=== PATIENT | female | born 1955 | race Caucasian/White ===

== ENCOUNTER 2017-01-04 09:32 | Day surgery (SDC) | payer OTHER ==
[2016-12-30 15:33] VITALS: BMI 18.3
[~2017-01-04 09:32] MED LIST: LACTATED RINGERS 1,000 ML IV SCH
[2017-01-04 09:46] VITALS: RESP 16; TEMP 97.1
[2017-01-04] MEDS ORDERED: LIDOCAINE 1% 20 ML VIAL (10MG/ML) FOR IV START INTRADERMA ONE (09:54)
[2017-01-04 10:02] LABS: Glucose,Whole Blood 105 mg/dL (75-99)
[2017-01-04] MEDS ORDERED: PROPOFOL 10 MG/ML 20 ML VIAL IV ONE (11:34)
--- NOTE | 2017-01-04 11:42 | P.GSHP ---
History of Present Illness H&P Date: 01/04/17 Chief Complaint: Diverticulitis This is a 61-year-old female who presents today for colonoscopy. She's had issues of diverticulitis. - Constitutional Constitutional: Reports as per HPI Past Medical History Past Medical History: No Reported History Additional Past Medical History / Comment(s): diverticulosis,constipation History of Any Multi-Drug Resistant Organisms: None Reported Past Surgical History: Section Past Anesthesia/Blood Transfusion Reactions: Motion Sickness Past Psychological History: No Psychological Hx Reported Additional Psychological History / Comment(s): pt is independant. lives w/ daughter and son in law in single story home that has 2 steps to get into. has 1 cat, works for [employer]. no medical equipment or outside services. Smoking Status: Current every day smoker Past Alcohol Use History: None Reported Additional Past Alcohol Use History / Comment(s): 1/2 ppd x 18 years Past Drug Use History: None Reported - Past Family History Father Family Medical History: No Reported History Additional Family Medical History / Comment(s): healthy Mother Family Medical History: Hypertension Medications and Allergies Home Medications Medication Instructions Recorded Confirmed Type No Known Home Medications [No 12/30/16 01/04/17 History Known Home Medications] Allergies Allergy/AdvReac Type Severity Reaction Status Date / Time Penicillins Allergy Unknown Verified 01/04/17 09:41 mold AdvReac Unknown Verified 01/04/17 09:41 Surgical - Exam Vital Signs Temp Pulse Resp BP Pulse Ox 97.1 F L 115 H 16 151/89 95 01/04/17 09:44 01/04/17 09:44 01/04/17 09:44 01/04/17 09:44 01/04/17 09:44 - General well developed, no distress - Eyes PERRL - ENT normal pinna - Neck no masses - Respiratory normal expansion - Cardiovascular Rhythm: regular - Abdomen Abdomen: soft, non tender Results - Labs Abnormal Lab Results - Last 24 Hours (Table) 01/04/17 Range/Units 09:49 POC Glucose (mg/dL) 105 H (75-99) mg/dL Assessment and Plan Plan: History of Diverticulitis. We'll perform colonoscopy
--- NOTE | 2017-01-04 11:53 | P.OP ---
Date of Procedure: 01/04/17 Preoperative Diagnosis: History of diverticulitis Postoperative Diagnosis: Severe diverticulosis of sigmoid and left colon Procedure(s) Performed: Colonoscopy Anesthesia: MAC Surgeon: Roland Keene Pathology: none sent Condition: stable Disposition: PACU Description of Procedure: The patient's placed on the endoscopy table in the lateral position. She received IV sedation. Digital rectal exam was performed which revealed no abnormalities. Flexible colonoscope was then placed patient anus passed throughout the entire colon. The ileocecal valve visualized. The cecum, ascending transverse colon appeared normal. In the descending; there is extensive diverticular changes. There appeared to be previous evidence of diverticulitis in the sigmoid colon with some inflammatory changes. A biopsies ; was performed. Scope was brought back the rectum and this appeared normal. Scope was withdrawn for patient.
[2017-01-04 12:23] VITALS: BP 141/88; PULSE 84
== END 2017-01-04 13:13 | disposition home or self-care (01) ==
LOC: ORWHC2ENDO 09:32
PROVIDERS: ATTEND Surgery
DX: K57.30 Diverticulosis of large intestine without perforation or abscess without bleeding (principal); F17.200 Nicotine dependence, unspecified, uncomplicated; Z88.0 Allergy status to penicillin; Z91.09 Other allergy status, other than to drugs and biological substances
CPT/HCPCS: 88305; 45380; J2704

== ENCOUNTER → 2017-01-31 | Outpatient (CLI) | payer OTHER ==
[2017-01-31 13:42] LABS: EKG EKG PERFORMED
[2017-01-31 14:15] LABS: Basophils % (A) 0 %; CH 29.8; CHCM 33.3; Eosinophils # (A) 0.1 k/uL (0-0.7); Eosinophils % (A) 1 %; HCT 45.5 % (34.0-46.0); HDW 2.36; HGB 15.2 gm/dL (11.4-16.0); Luc # (Auto) 0.14; Luc % (Auto) 2; Lymphocytes # (A) 1.8 k/uL (1.0-4.8); Lymphocytes % (A) 22 %; MCH 30.1 pg (25.0-35.0); MCHC 33.5 g/dL (31.0-37.0); MCV 89.8 fL (80.0-100.0); Mean Platelet Volume 6.2; Monocytes # (A) 0.5 k/uL (0-1.0); Monocytes % (A) 6 %; Neutrophils # (A) 5.7 k/uL (1.3-7.7); Neutrophils % (A) 70 %; RBC 5.07 m/uL (3.80-5.40); RDW 13.3 % (11.5-15.5); WBC 8.3 k/uL (3.8-10.6); WBC (Perox) 8.25
[2017-01-31 14:17] LABS: Anion Gap 8 mmol/L; Carbon Dioxide 28 mmol/L (22-30); Chloride 105 mmol/L (98-107); Potassium 4.6 mmol/L (3.5-5.1); Sodium 141 mmol/L (137-145)
== END | disposition home or self-care (01) ==
LOC: LABWHC1 13:22
PROVIDERS: ATTEND Surgery
DX: Z01.810 Encounter for preprocedural cardiovascular examination (principal); Z01.812 Encounter for preprocedural laboratory examination
CPT/HCPCS: 36415; 80051; 85025; 86850; 86900; 86901; 93005

== ENCOUNTER 2017-02-03 08:05 | Inpatient (IN) | payer OTHER ==
[2017-01-31 10:56] VITALS: BMI 18.3
[~2017-02-03 08:05] MED LIST changes: +DEXAMETHASONE SOD PHOSPHATE 10 MG/ML 1 ML VIAL IV ONE; +HEPARIN SODIUM,PORCINE 5,000 UNIT/ML 1 ML VIAL SQ ONE; +HYDROmorphone 1 MG/ML 1 ML SYRINGE IVP PRN; -LACTATED RINGERS 1,000 ML IV SCH; +MIDAZOLAM 2 MG/2 ML VIAL IV PRN; +ONDANSETRON 4 MG/2 ML VIAL IVP ONE; +ceFAZolin 2 GM in SODIUM CHLORIDE 0.9% 100 ML IVPB ONE; +metroNIDAZOLE-NS PMX 500 MG in SALINE 1 100ML.BAG IVPB ONE
[2017-02-03] MEDS ORDERED: LIDOCAINE 1% 20 ML VIAL (10MG/ML) FOR IV START INTRADERMA ONE (08:43)
[2017-02-03] MEDS: LACTATED RINGERS 1,000 ML IV SCH ×2 (08:43→15:32)
--- NOTE | 2017-02-03 10:22 | P.GSHP ---
History of Present Illness H&P Date: 02/03/17 Chief Complaint: Diverticulitis This is a 61-year-old female presents today for low anterior resection. Patient has had recent history of perforated diverticulitis. Patient's aware the risks of surgery including possible colostomy wound infection. - Constitutional Constitutional: Reports as per HPI Past Medical History Past Medical History: No Reported History Additional Past Medical History / Comment(s): diverticulosis, History of Any Multi-Drug Resistant Organisms: None Reported Past Surgical History: Section Additional Past Surgical History / Comment(s): COLONOSCOPY, Past Anesthesia/Blood Transfusion Reactions: Motion Sickness Past Psychological History: No Psychological Hx Reported Additional Psychological History / Comment(s): pt is independant. lives w/ daughter and son in law in single story home that has 2 steps to get into. has 1 cat, works for [employer]. no medical equipment or outside services. Smoking Status: Current every day smoker Past Alcohol Use History: None Reported Additional Past Alcohol Use History / Comment(s): STARTED SMOKING AT AGE 42 SMOKES 1/2PPD Past Drug Use History: None Reported - Past Family History Father Family Medical History: No Reported History Additional Family Medical History / Comment(s): healthy Mother Family Medical History: Hypertension Medications and Allergies Home Medications Medication Instructions Recorded Confirmed Type No Known Home Medications [No 12/30/16 02/03/17 History Known Home Medications] Allergies Allergy/AdvReac Type Severity Reaction Status Date / Time latex Allergy Itching, Verified 02/03/17 08:29 RED SKIN Penicillins Allergy HIVES Verified 02/03/17 08:29 mold AdvReac RUNNY Verified 02/03/17 08:29 NOSE,SNEEZING Surgical - Exam Vital Signs Temp Pulse Resp BP Pulse Ox 97.1 F L 100 16 140/88 99 02/03/17 08:25 02/03/17 08:25 02/03/17 08:25 02/03/17 08:25 02/03/17 08:25 - General well developed, no distress - Eyes PERRL - ENT normal pinna - Neck no masses - Respiratory normal expansion - Cardiovascular Rhythm: regular - Abdomen Mild left lower quadrant tenderness Abdomen: soft Assessment and Plan Plan: History of perforated diverticula is. We'll perform low anterior resection.
[2017-02-03] MEDS: MORPHINE SULFATE 4 MG/ML SYRINGE IVP ONE ×2 (10:26→10:33)
[2017-02-03] MEDS ORDERED: NEOSTIGMINE 1 MG/ML 10 ML VIAL ONE (10:28)
[2017-02-03] MEDS ORDERED: PHENYLEPHRINE-0.9% NACL SYG 1 MG/10 ML SYRINGE ONE (10:28)
[2017-02-03] MEDS ORDERED: GLYCOPYRROLATE 0.2 MG/ML 2 ML VIAL ONE (10:28)
[2017-02-03] MEDS ORDERED: PROPOFOL 10 MG/ML 20 ML VIAL IV ONE (10:28)
[2017-02-03] MEDS ORDERED: SUCCINYLCHOLINE CHLORIDE 100 MG/5 ML SYR IV ONE (10:28)
[2017-02-03] MEDS ORDERED: LIDOCAINE 1% INJ 10MG/ML (20 ML MDV) ONE (10:28)
[2017-02-03] MEDS ORDERED: ROCURONIUM BROMIDE 10 MG/ML 10 ML VIAL IV ONE (10:28)
[2017-02-03] MEDS ORDERED: MIDAZOLAM 2 MG/2 ML VIAL ONE (10:28)
[2017-02-03] MEDS ORDERED: fentaNYL (PF) 50 MCG/ML 2 ML AMP ONE (10:28)
[2017-02-03] MEDS ORDERED: ONDANSETRON 4 MG/2 ML VIAL ONE (10:28)
[2017-02-03] MEDS ORDERED: LACTATED RINGERS 1,000 ML IV ONE ×2 (11:02)
[2017-02-03] MEDS ORDERED: NALOXONE 0.4 MG/ML 1 ML VIAL IV PRN (11:13)
[2017-02-03] MEDS ORDERED: HYDROmorphone 1 MG/ML 1 ML SYRINGE IVP PRN (11:58)
[2017-02-03] MEDS ORDERED: METOCLOPRAMIDE 5 MG/ML 2 ML VIAL IVP PRN (11:58)
[2017-02-03] MEDS ORDERED: ONDANSETRON 4 MG/2 ML VIAL IVP PRN (11:58)
--- NOTE | 2017-02-03 11:58 | P.OP ---
Date of Procedure: 02/03/17 Preoperative Diagnosis: History of perforated diverticulitis Postoperative Diagnosis: Perforated diverticulitis Procedure(s) Performed: Low anterior section Repair of incisional hernia Implants: Anesthesia: JEANIEA Surgeon: Roland Keene Estimated Blood Loss (ml): 20 Pathology: other (Sigmoid colon) Condition: stable Disposition: PACU Indications for Procedure: Operative Findings: Description of Procedure: The patient's placed the operative table in the supine position. She received general anesthesia. She was then placed in dorsal lithotomy position. Her abdomen was prepped and draped usual fashion. The patient a previous low midline incision. Superior portion of her low midline incision was a small mass which was an incisional hernia. The abdomen was entered through the midline. The incisional hernia had incarcerated fat. This was sent to pathology. The Puneet wound infection placed in the wound and then the Bookwalter placed a wound. The patient obvious sigmoid diverticulitis. There was a short segment of the; which was chronically inflamed. This point the sigmoid colon and left colon were mobilized. And then a suitable spot on the descending colon was chosen for transection a window was made in the mesentery with a hemostat and then the colon was transected with a GI stapler. Next using the LigaSure device the mesentery of the bowel was divided and then the rectum was transected with the contour stapler. The pursestring device applied to the proximal colon and then fired. The colon was then opened and the 25 mm EEA stapler was placed into the colon and of pursestring was secured. At this point the EEA staplerpatient's anus and then the spike was driven through the staple line. The anvil was connected to the stapler the stapler is then closed and fired. The stapler was withdrawn. The anastomosis was inspected under air insufflation. There was a small amount of air leakage from the lateral aspect of the anastomosis. The anastomosis was buttressed with 3-0 GI silk suture. The colon was then reinsufflated and there is no evidence of any air leakage. The abdomen was then irrigated. The retractors and wound protector removed. The fascia is closed loop #1 PDS suture. The skin was closed abram. Patient top she will well and was sent to recovery in stable condition.
[2017-02-03] MEDS: BUPIVACAINE (PF) 0.5% 31.3 ML, HYDROMORPHONE (PF) 5 MG in SODIUM CHLORIDE 0.9% 218 ML EPIDURAL PRN ×2 (12:05→12:56)
[2017-02-03 15:51] LABS: Basophils % (A) 0 %; CH 30.4; CHCM 32.2; Eosinophils # (A) 0.1 k/uL (0-0.7); Eosinophils % (A) 1 %; HDW 2.17; HGB 15.1 gm/dL (11.4-16.0); Luc # (Auto) 0.04; Luc % (Auto) 0; Lymphocytes # (A) 0.4 k/uL (1.0-4.8); Lymphocytes % (A) 3 %; MCH 30.3 pg (25.0-35.0); MCHC 32.1 g/dL (31.0-37.0); MCV 94.6 fL (80.0-100.0); Mean Platelet Volume 6.1; Monocytes # (A) 0.4 k/uL (0-1.0); Monocytes % (A) 3 %; Neutrophils % (A) 93 %; RBC 4.97 m/uL (3.80-5.40); RDW 13.7 % (11.5-15.5); WBC 15.1 k/uL (3.8-10.6); WBC (Perox) 15.74
[2017-02-03 15:58] LABS: Anion Gap 11 mmol/L; Blood Urea Nitrogen 9 mg/dL (7-17); Carbon Dioxide 22 mmol/L (22-30); Chloride 108 mmol/L (98-107); Glucose 122 mg/dL (74-99); Non-African American GFR(MDRD) >60 (>60 ml/min/1.73 sqM); Sodium 141 mmol/L (137-145)
[2017-02-03] MEDS: D5-0.45% NACL WITH KCL 20MEQ/L 1,000 ML IV SCH (16:15)
[2017-02-03] MEDS: ALVIMOPAN 12 MG CAPSULE PO SCH (21:06)
[2017-02-03] MEDS: HEPARIN SODIUM,PORCINE 5,000 UNIT/ML 1 ML VIAL SQ SCH (21:07)
[2017-02-03] MEDS: FAMOTIDINE 20 MG/2 ML VIAL IV SCH (21:08)
--- NOTE | 2017-02-03 21:23 | CONS ---
DATE OF CONSULTATION: 02/03/2017 REASON FOR CONSULTATION: Advice regarding diabetic diverticulosis and other multiple medical issues requested by Dr. Keene. HISTORY OF PRESENT ILLNESS: This 61-year-old woman with past medical history of diverticulitis and remote history of nicotine dependence being followed by Dr. Dael Alvarez in the outpatient setting recently admitted with acute abdominal pain with acute diverticulitis. The patient underwent low anterior resection and repair of incisional hernia by Dr. Keene. There is no history of fever, rigors or chills. No history of headache, loss of consciousness or seizures, chest pain or palpitations at this time. PAST MEDICAL HISTORY: History of diverticulitis. History of colonoscopy. History of section. History of nicotine dependence. MEDICATIONS: None. ALLERGIES: LATEX, PENICILLIN AND MOLD. FAMILY HISTORY: No history of heart disease or strokes in the family. SOCIAL HISTORY: History of smoking. No history of alcohol intake. REVIEW OF SYSTEMS: HEENT: No diminished vision. No diminished hearing. No angina or palpitations. RESPIRATORY: No cough. GI: As mentioned earlier. : No dysuria. Nervous system: Numbness or weakness. ALLERGIES/IMMUNOLOGY: No asthma or hayfever. MUSCULOSKELETAL: As mentioned earlier. HEMATOLOGY/ONCOLOGY: No history of anemia. ENDOCRINE: No history of diabetes or hypothyroidism. CONSTITUTIONAL: As mentioned earlier. DERMATOLOGY: Negative. RHEUMATOLOGY: As mentioned earlier. PSYCHIATRY: As mentioned earlier. PHYSICAL EXAMINATION: Alert and oriented x three. Pulse 97. Blood pressure 126/62, respiratory rate 16. Temperature 97.5, pulse ox 97% on 3 L. HEENT: Conjunctivae normal. NECK: No jugular venous distention. CARDIOVASCULAR: S1, S2 muffled. RESPIRATORY: Breath sounds diminished at the bases. No rhonchi. No crackles. ABDOMEN: Soft, status post surgery. Legs: No edema. No swelling. CENTRAL NERVOUS SYSTEM: Higher functions as mentioned earlier. Moves all four limbs. No focal deficits. LYMPHATICS: No lymph nodes palpable in the neck, axillae or groin. SKIN: No ulcer, rash or bleeding. LABS: WBC 15.3, hemoglobin 15.1, sodium 141, potassium 4. ASSESSMENT: 1. Status post low anterior resection and repair of incisional hernia for diverticulitis. 2. Increased WBC, possibly reactive. 3. Increased random blood sugar. 4. History of nicotine dependence. 5. History of section. 6. FULL CODE. RECOMMENDATIONS AND DISCUSSION: This 61-year-old woman who presented after surgery at this time I would recommend to continue current medications, continue symptomatic treatment. Otherwise at this time, I recommend DVT prophylaxis, incentive spirometry. We will follow the patient closely with you. Further recommendations to follow. A copy of dictation being forwarded to Dr. Dale Alvarez who is her primary physician. Discussed with the patient. Thank you Dr. Keene for lettings us participate in the care of this patient. See orders for further details.
[2017-02-04] MEDS: D5-0.45% NACL WITH KCL 20MEQ/L 1,000 ML IV SCH ×4 (05:56→21:33)
[2017-02-04] MEDS: LACTATED RINGERS 1,000 ML IV SCH ×2 (05:57→14:03)
[2017-02-04] MEDS: FAMOTIDINE 20 MG/2 ML VIAL IV SCH ×2 (07:52→21:26)
[2017-02-04] MEDS: ALVIMOPAN 12 MG CAPSULE PO SCH ×2 (07:52→21:26)
[2017-02-04] MEDS: HEPARIN SODIUM,PORCINE 5,000 UNIT/ML 1 ML VIAL SQ SCH ×2 (07:52→21:26)
--- NOTE | 2017-02-04 10:13 | P.PN ---
Progress Note - Text 0745 Anesthesia POD 1. Patient is status post section under spinal anesthesia with intra-thecal preservative free morphine 300 g. Mild pruritus, good post-op analgesia, and headache or other complications.
--- NOTE | 2017-02-04 10:59 | P.PN ---
Progress Note - Text 8931 Anesthesia POD 1. Status Post low anterior resection under general endotracheal anesthesia with an epidrual catheter placed at L3 4 for post surgical pain releif. VAS (1, 3) with Bupivicaine 0.0625 % and Dilaudid 20 mcg / cc running at 8 cc / hr. Lower extremity strength (3/4). No sedation. Site looks OK. Since the patient's visual analog pain score is good her nurse and I have decided to reduce the infusion rate a bit in order to decrease what ever affect the epidural may be having on the patient's lower extremity strength.
[2017-02-04 13:40] LABS: ALT 23 U/L (9-52); AST 26 U/L (14-36); Alkaline Phosphatase 74 U/L (38-126); Anion Gap 10 mmol/L; Blood Urea Nitrogen 6 mg/dL (7-17); Calcium 8.9 mg/dL (8.4-10.2); Carbon Dioxide 23 mmol/L (22-30); Chloride 106 mmol/L (98-107); Glucose 130 mg/dL (74-99); Non-African American GFR(MDRD) >60 (>60 ml/min/1.73 sqM); Potassium 4.1 mmol/L (3.5-5.1); Sodium 139 mmol/L (137-145); Total Bilirubin 0.7 mg/dL (0.2-1.3); Total Protein 6.8 g/dL (6.3-8.2)
[2017-02-04 13:50] LABS: Basophils % (A) 0 %; CHCM 31.7; Eosinophils # (A) 0.1 k/uL (0-0.7); Eosinophils % (A) 0 %; HCT 44.7 % (34.0-46.0); HDW 2.22; HGB 14.3 gm/dL (11.4-16.0); Luc # (Auto) 0.12; Luc % (Auto) 1; Lymphocytes # (A) 1.8 k/uL (1.0-4.8); Lymphocytes % (A) 11 %; MCH 30.3 pg (25.0-35.0); MCV 94.7 fL (80.0-100.0); Mean Platelet Volume 6.2; Monocytes # (A) 0.8 k/uL (0-1.0); Monocytes % (A) 5 %; Neutrophils # (A) 14.3 k/uL (1.3-7.7); Neutrophils % (A) 83 %; RBC 4.71 m/uL (3.80-5.40); RDW 13.7 % (11.5-15.5); WBC 17.2 k/uL (3.8-10.6); WBC (Perox) 17.59
[2017-02-04 13:53] LABS: Appearance,Urine Clear (Clear); Bacteria,Urine Rare /hpf; Bilirubin,Urine Negative (Negative); Glucose,Urine (UA) Negative (Negative); Ketones,Urine Negative (Negative); Leukocyte Esterase,Urine Negative (Negative); Mucus,Urine Rare /hpf; Nitrite,Urine Negative (Negative); Particle Count 1185; Protein,Urine Negative (Negative); RBC,Urine 2 /hpf (0-5); Specific Gravity,Urine 1.005 (1.001-1.035); UA Billing (MACRO vs. MICRO) MICRO; Urobilinogen,Urine <2.0 mg/dL (<2.0); WBC,Urine 1 /hpf (0-5)
[2017-02-04] MEDS: BUPIVACAINE (PF) 0.5% 31.3 ML, HYDROMORPHONE (PF) 5 MG in SODIUM CHLORIDE 0.9% 218 ML EPIDURAL PRN (15:53)
--- NOTE | 2017-02-04 16:06 | P.PN ---
Progress Note - Text The patient's postoperative day 1 from low anterior resection for diverticulitis. She's doing quite well. She's had some numbness from the epidural catheter. On exam her vital signs are stable. Her abdomen soft. Her incision is clean dry tach. Patient was started clear liquids. She'll be advanced to regular diet over the weekend once her bowel function returns.
--- NOTE | 2017-02-04 17:07 | XR ---
EXAMINATION TYPE: XR chest 1V portable DATE OF EXAM: 02/04/2017 COMPARISON: NONE HISTORY: Chest pain. Atelectasis. TECHNIQUE: Single frontal view of the chest is obtained. FINDINGS: There is some infiltrate and atelectasis at the left lung base. There is blunting of the l eft costophrenic angle more than the right. There is no gross heart failure. Thoracic aorta is athero matous. There is minimal infiltrate also at the right lung base. IMPRESSION: Bilateral lower lobe pulmonary infiltrates and atelectasis that is worse on the left kandice e. No heart failure. Mild pleural reaction.
--- NOTE | 2017-02-04 21:36 | PN ---
DATE OF SERVICE: 02/04/2017 This 61-year-old woman admitted after low anterior resection and repair of incisional hernia, is being closely monitored. The patient complains of tiredness and weakness at this time. White count is elevated up to 15.1. UA is unremarkable. PAST MEDICAL HISTORY: Reviewed. REVIEW OF SYSTEMS: CARDIOVASCULAR: As mentioned earlier. RESPIRATORY: As mentioned earlier. : As mentioned earlier. : No dysuria. CENTRAL NERVOUS SYSTEM: No numbness or weakness. Current medications reviewed and include: 1. Enterag 12 mg b.i.d. 2. Bupivacaine. 3. Pepcid 20 mg b.i.d. 4. Heparin. 5. Dilaudid. 6. Lactated Ringer. 7. Reglan 10 mg 10 mg every 6 p.r.n. 8. Narcan. 9. Zofran. PHYSICAL EXAMINATION: Pulse is 99, blood pressure 130/64, respirations 16, temperature 98.7, pulse rate is 93% on 2 L. HEENT: Conjunctivae normal. NECK: No JVD. CARDIOVASCULAR: S1 and S2 muffled. RESPIRATORY: Breath sounds diminished at the bases. Scattered rhonchi and crackles. ABDOMEN: Soft. Mild diffuse tenderness present. LEGS: No edema. NERVOUS SYSTEM: No focal deficits. LABS: WBC 17.2, glucose 130. ASSESSMENT: 1. Status post low anterior resection and repair of incisional hernia for diverticulitis. 2. Increased WBC, possibly reactive. 3. Increased random blood sugar. 4. History of nicotine dependence. 5. History of section. 6. FULL CODE. RECOMMENDATIONS AND DISCUSSION: In this 61-year-old woman who presented with multiple medical issues, we will monitor the patient closely. Continue with symptomatic treatment. Continue with IV fluids. DVT prophylaxis. Also recommend UA with micro. Also recommend repeat labs as well as repeat chest x-ray also. Further recommendations to follow.
[2017-02-05] MEDS: LACTATED RINGERS 1,000 ML IV SCH ×2 (06:58→09:01)
[2017-02-05 08:13] VITALS: RESP 16
[2017-02-05] MEDS: D5-0.45% NACL WITH KCL 20MEQ/L 1,000 ML IV SCH ×4 (08:59→12:38)
[2017-02-05] MEDS: HEPARIN SODIUM,PORCINE 5,000 UNIT/ML 1 ML VIAL SQ SCH ×2 (09:00→20:21)
[2017-02-05] MEDS: ALVIMOPAN 12 MG CAPSULE PO SCH ×2 (09:00→20:21)
[2017-02-05] MEDS: FAMOTIDINE 20 MG/2 ML VIAL IV SCH ×2 (09:00→20:22)
--- NOTE | 2017-02-05 10:06 | P.PN ---
Subjective Principal diagnosis: Diverticulitis Patient says her pain is improving. Activity level also improving. No flatus or bowel movement thus far. No labwork from this morning. She has been slightly tachycardic. Objective - Vital Signs Vital signs: Vital Signs Temp 98.2 F 02/05/17 07:00 Pulse 110 H 02/05/17 07:00 Resp 16 02/05/17 07:00 BP 141/85 02/05/17 07:00 Pulse Ox 91 L 02/05/17 07:05 Intake & Output 02/04/17 02/05/17 02/05/17 18:59 06:59 18:59 Intake Total 240 1496 Output Total 3325 3750 850 Balance -5759 -2066 -850 Weight 50.802 kg Intake: IV 1496 D5-0.45% NaCl with KCl 1496 20Meq/l 1,000 ml @ 125 mls/hr IV .Q8H [facility] Rx#: [id number] Oral 240 Output: Urine 3325 3750 850 Other: Voiding Method Indwelling Catheter Indwelling Catheter Indwelling Catheter - Exam Abdomen: Soft, nondistended, mild incisional tenderness, dressing intact - Labs CBC & Chem 7: 02/04/17 12:49 02/04/17 12:49 Labs: Abnormal Lab Results - Last 24 Hours (Table) 02/04/17 02/04/17 02/04/17 Range/Units 12:45 12:49 12:49 WBC 17.2 H (3.8-10.6) k/uL Neutrophils # 14.3 H (1.3-7.7) k/uL BUN 6 L (7-17) mg/dL Glucose 130 H (74-99) mg/dL Urine Blood Trace H (Negative) Urine Bacteria Rare H (None) /hpf Urine Mucus Rare H (None) /hpf Assessment and Plan (1) Diverticulitis Narrative/Plan: Continue liquid diet. Increase activity levels. Check morning labs. Status: Acute
[2017-02-05 11:18] LABS: Basophils % (A) 0 %; CH 30.1; CHCM 32.5; Eosinophils # (A) 0.2 k/uL (0-0.7); Eosinophils % (A) 2 %; HCT 42.2 % (34.0-46.0); HDW 2.27; HGB 13.7 gm/dL (11.4-16.0); Luc # (Auto) 0.08; Luc % (Auto) 1; Lymphocytes # (A) 1.7 k/uL (1.0-4.8); Lymphocytes % (A) 17 %; MCH 30.1 pg (25.0-35.0); MCHC 32.3 g/dL (31.0-37.0); Mean Platelet Volume 6.2; Monocytes # (A) 0.4 k/uL (0-1.0); Monocytes % (A) 4 %; Neutrophils # (A) 7.7 k/uL (1.3-7.7); Neutrophils % (A) 76 %; RBC 4.54 m/uL (3.80-5.40); RDW 13.7 % (11.5-15.5); WBC 10.1 k/uL (3.8-10.6); WBC (Perox) 9.93
[2017-02-05] MEDS: LEVOFLOXACIN 500MG-D5W PMX 500 MG in DEXTROSE/WATER 1 100ML.BAG IVPB SCH (11:19)
[2017-02-05 11:39] LABS: ALT 26 U/L (9-52); AST 30 U/L (14-36); Alkaline Phosphatase 61 U/L (38-126); Anion Gap 6 mmol/L; Blood Urea Nitrogen 4 mg/dL (7-17); Calcium 8.9 mg/dL (8.4-10.2); Carbon Dioxide 28 mmol/L (22-30); Chloride 105 mmol/L (98-107); Glucose 105 mg/dL (74-99); Non-African American GFR(MDRD) >60 (>60 ml/min/1.73 sqM); Potassium 3.8 mmol/L (3.5-5.1); Sodium 139 mmol/L (137-145); Total Bilirubin 0.6 mg/dL (0.2-1.3); Total Protein 6.5 g/dL (6.3-8.2)
--- NOTE | 2017-02-05 18:25 | P.PN ---
Progress Note - Text 02/05 359 61-year-old female status post exploratory lap and low anterior resection by Dr. mena. seen this afternoon with epidural solution running at 7 mL an hour and a VAS of 1 at rest. No motor or sensory deficits, patient could ambulate easily all day. Plan to continue epidural infusion.
[2017-02-05] MEDS: LEVALBUTEROL NEB 1.25 MG/3 ML AMP INHALATION SCH (19:24)
[2017-02-05] MEDS: BUPIVACAINE (PF) 0.5% 31.3 ML, HYDROMORPHONE (PF) 5 MG in SODIUM CHLORIDE 0.9% 218 ML EPIDURAL PRN (19:42)
[2017-02-06] MEDS: D5-0.45% NACL WITH KCL 20MEQ/L 1,000 ML IV SCH ×2 (07:02→11:22)
[2017-02-06] MEDS: LACTATED RINGERS 1,000 ML IV SCH ×2 (07:03→11:33)
[2017-02-06 07:39] LABS: Basophils % (A) 0 %; CH 30.5; Eosinophils # (A) 0.1 k/uL (0-0.7); Eosinophils % (A) 1 %; HCT 41.7 % (34.0-46.0); HGB 13.4 gm/dL (11.4-16.0); Luc # (Auto) 0.07; Luc % (Auto) 1; Lymphocytes # (A) 1.6 k/uL (1.0-4.8); Lymphocytes % (A) 19 %; MCH 29.7 pg (25.0-35.0); MCHC 32.1 g/dL (31.0-37.0); MCV 92.6 fL (80.0-100.0); Mean Platelet Volume 6.1; Monocytes # (A) 0.4 k/uL (0-1.0); Monocytes % (A) 4 %; Neutrophils # (A) 6.4 k/uL (1.3-7.7); Neutrophils % (A) 75 %; RDW 13.6 % (11.5-15.5); WBC 8.6 k/uL (3.8-10.6); WBC (Perox) 8.65
[2017-02-06 08:14] LABS: ALT 30 U/L (9-52); AST 27 U/L (14-36); Alkaline Phosphatase 68 U/L (38-126); Anion Gap 8 mmol/L; Blood Urea Nitrogen 3 mg/dL (7-17); Calcium 9.2 mg/dL (8.4-10.2); Carbon Dioxide 26 mmol/L (22-30); Chloride 105 mmol/L (98-107); Glucose 108 mg/dL (74-99); Non-African American GFR(MDRD) >60 (>60 ml/min/1.73 sqM); Potassium 4.1 mmol/L (3.5-5.1); Sodium 139 mmol/L (137-145); Total Bilirubin 0.5 mg/dL (0.2-1.3)
[2017-02-06] MEDS: FAMOTIDINE 20 MG/2 ML VIAL IV SCH ×2 (08:31→21:40)
[2017-02-06] MEDS: ALVIMOPAN 12 MG CAPSULE PO SCH ×2 (08:31→21:40)
[2017-02-06] MEDS: HEPARIN SODIUM,PORCINE 5,000 UNIT/ML 1 ML VIAL SQ SCH ×2 (08:31→21:40)
--- NOTE | 2017-02-06 08:55 | PN ---
DATE OF SERVICE: 02/05/2017 This 61-year-old woman was admitted with anterior resection and repair of the incisional hernia, has been closely monitored. The patient has early infiltrate in both lower part of the lungs. Otherwise, the patient is feeling much better. No chest pain, no palpitations. No fever. On exam, alert and oriented x3. Pulse 107, blood pressure 150/88, respirations 16, temperature 98.1, pulse ox 91% on 2-L. HEENT: Conjunctivae normal. Oral mucosa moist. NECK: No jugular venous distention. No carotid bruit. No thyroid enlargement. CARDIOVASCULAR: S1 and S2, muffled. RESPIRATORY: Breath sounds diminished at the bases. A few scattered rhonchi and basal crackles, right more than the left. ABDOMEN: Soft, status post surgery. NERVOUS SYSTEM: No focal deficits. LABS: CBC within normal limits. UA noted. ASSESSMENT: 1. Status post low anterior resection and repair of incisional hernia for diverticulitis. 2. Increased WBC, possibly reactive, improved. 3. Previous atelectasis, rule out early bronchitis. 4. Increased random blood sugar. 5. History of nicotine dependence. 6. History of section. 7. FULL CODE. RECOMMENDATIONS AND DISCUSSION: In this 61-year-old woman who presented with multiple complex medical issues, will monitor the patient closely. Continue the current medications. Continue symptomatic treatment. I would recommend course of empiric antibiotics. I would also recommend course of bronchodilators also. Otherwise incentive spirometry. Will recommend repeat labs. Closely follow with Surgery. Further recommendations to follow. See orders for further details. ALICIAD
[2017-02-06] MEDS: LEVALBUTEROL NEB 1.25 MG/3 ML AMP INHALATION SCH ×3 (09:20→21:37)
[2017-02-06] MEDS: LEVOFLOXACIN 500MG-D5W PMX 500 MG in DEXTROSE/WATER 1 100ML.BAG IVPB SCH (11:26)
--- NOTE | 2017-02-06 12:46 | P.PN ---
Subjective Principal diagnosis: Diverticulitis Patient doing well today. Tachycardia is resolved. White blood cell count normal. She would like her diet advanced. No flatus yet. Objective - Vital Signs Vital signs: Vital Signs Temp 98.8 F 02/06/17 07:00 Pulse 104 H 02/06/17 07:00 Resp 16 02/06/17 07:00 BP 149/76 02/06/17 07:00 Pulse Ox 94 L 02/06/17 09:19 Intake & Output 02/05/17 02/06/17 02/06/17 18:59 06:59 18:59 Intake Total 1122.533 Output Total 2049 2700 Balance -0 -1577.467 Intake: IV 600 D5-0.45% NaCl with KCl 600 20Meq/l 1,000 ml @ 75 mls /hr IV .[id number] [facility] Rx#: [id number] Intake, IV Titration 222.533 Amount Bupivacaine (Pf) 0.5% 31. 222.533 3 ml Hydromorphone (Pf) 5 mg In Sodium Chloride 0. 9% 218 ml @ Per Protocol EPIDURAL .Q0M PRN Rx#: [id number] Oral 300 Output: Urine 2049 2699 Other: Voiding Method Indwelling Catheter Indwelling Catheter Indwelling Catheter # Voids 1 - Exam Abdomen: Soft, nondistended, dressing clean and dry, bowel sounds present, minimal tenderness - Labs CBC & Chem 7: 02/06/17 07:07 02/06/17 07:07 Labs: Abnormal Lab Results - Last 24 Hours (Table) 02/06/17 Range/Units 07:07 BUN 3 L (7-17) mg/dL Glucose 108 H (74-99) mg/dL Total Protein 6.0 L (6.3-8.2) g/dL Albumin 3.4 L (3.5-5.0) g/dL Assessment and Plan (1) Diverticulitis Narrative/Plan: Increase activity level. Advance diet to full liquids. Remove epidural today. Remove Prince catheter. Status: Acute
--- NOTE | 2017-02-06 21:05 | P.PN ---
Progress Note - Text 02/07 2116 61-year-old female status post low anterior resection by Dr. Keene. Epidural was DC'd this evening at around 6:00. Patient doing well comfortable with no pain
[2017-02-06] MEDS: HYDROcodone/APAP 5-325MG 1 EACH TAB PO PRN (21:37)
[2017-02-07] MEDS: D5-0.45% NACL WITH KCL 20MEQ/L 1,000 ML IV SCH ×2 (00:45→12:40)
[2017-02-07] MEDS: HYDROcodone/APAP 5-325MG 1 EACH TAB PO PRN ×5 (01:58→22:55)
[2017-02-07] MEDS: LEVALBUTEROL NEB 1.25 MG/3 ML AMP INHALATION SCH ×2 (08:00→11:11)
[2017-02-07] MEDS: ALVIMOPAN 12 MG CAPSULE PO SCH ×2 (08:32→20:57)
[2017-02-07] MEDS: HEPARIN SODIUM,PORCINE 5,000 UNIT/ML 1 ML VIAL SQ SCH ×2 (08:32→20:57)
[2017-02-07] MEDS: FAMOTIDINE 20 MG/2 ML VIAL IV SCH (08:34)
--- NOTE | 2017-02-07 09:36 | PN ---
DATE OF SERVICE: 02/06/2017 This 61-year-old woman was admitted after low anterior resection also had atelectasis. No chest pain, no palpitations. No fever. Patient is feeling much better. On exam, alert and oriented times three. Pulse 93, blood pressure 161/70. Respirations 16, temperature 97.7. Pulse ox 94% on 2 L. HEENT: Conjunctivae normal. NECK: No jugular venous distention. CARDIOVASCULAR: S1, S2. RESPIRATORY: Breath sounds diminished at the bases. A few scattered rhonchi and crackles. ABDOMEN: Soft, status post surgery. LEGS: No edema. No swelling. CENTRAL NERVOUS SYSTEM: No focal deficits. LABS: CBC within normal limits. Otherwise, albumin 3.4. ASSESSMENT: 1. Status post low anterior resection and repair of incisional hernia for diverticulitis. 2. Increased WBC, possibly reactive, improved. 3. Possible atelectasis and early bronchitis, improving. No evidence of pneumonia. 4. Increased random blood sugar. 5. History of nicotine dependence. 6. History of section. 7. FULL CODE. RECOMMENDATIONS AND DISCUSSION: Recommend to continue the current medications. Continue with monitoring. Symptomatic treatment. Continue the rest of the medication. Bronchodilators and DVT prophylaxis. Closely follow with surgery. Further recommendations to follow.
[2017-02-07] MEDS: LEVOFLOXACIN 500MG-D5W PMX 500 MG in DEXTROSE/WATER 1 100ML.BAG IVPB SCH ×2 (10:47→12:39)
[2017-02-07] MEDS: LACTATED RINGERS 1,000 ML IV SCH (10:50)
[2017-02-07] MEDS ORDERED: SIMETHICONE 80 MG CHEWABLE PO PRN (14:55)
[2017-02-07] MEDS: ALBUTEROL NEBULIZED 2.5 MG/3 ML INHALATION SCH ×2 (15:49→19:26)
[2017-02-07] MEDS: LEVOFLOXACIN 500 MG TAB PO SCH (17:04)
--- NOTE | 2017-02-07 20:14 | PN ---
DATE OF SERVICE: 02/07/2017 This 61-year-old woman was admitted after low anterior resection and repair of incisional hernia. She is improving significantly. No chest pain. No palpitation. No fever. On exam, alert and oriented x3. Pulse 81, blood pressure 180/75, respiration 16, temperature 98.1, pulse ox 94% on 2 L. HEENT: Conjunctivae normal. Oral mucosa moist. NECK: No jugular venous distention. No carotid bruit. No lymph node enlargement. CARDIOVASCULAR SYSTEM: S1, S2 muffled. No S3. No S4. No added sound. RESPIRATORY SYSTEM: Breath sounds diminished at the bases. A few scattered rhonchi and crackles. ABDOMEN: Soft, non-tender. No mass palpable. LEGS: No edema. No swelling. NERVOUS SYSTEM: No focal deficit. LABS: WBC 8.6, hemoglobin 13.4. Albumin is 3.4. ASSESSMENT: 1. Status post low anterior resection, repair of incisional hernia for diverticulitis. 2. Increased white count, possibly reactive, improved. 3. Possible atelectasis and early bronchitis, improving. No evidence of pneumonia. 4. Increased random blood sugar. 5. History of nicotine dependence. 6. History of section. 7. FULL CODE. RECOMMENDATIONS AND DISCUSSION: I recommend to continue with the current medications, continue with symptomatic treatment, continue with incentive spirometry, continue with the bronchodilators. Closely follow with Surgery. Further recommendations to follow.
[2017-02-07] MEDS: FAMOTIDINE 20 MG TAB PO SCH (20:57)
[2017-02-08] MEDS: D5-0.45% NACL WITH KCL 20MEQ/L 1,000 ML IV SCH ×2 (00:02→14:19)
[2017-02-08] MEDS: HYDROcodone/APAP 5-325MG 1 EACH TAB PO PRN ×3 (04:01→14:16)
[2017-02-08] MEDS: LACTATED RINGERS 1,000 ML IV SCH (07:16)
[2017-02-08] MEDS: ALBUTEROL NEBULIZED 2.5 MG/3 ML INHALATION SCH ×3 (07:21→15:30)
[2017-02-08] MEDS: ALVIMOPAN 12 MG CAPSULE PO SCH (08:13)
[2017-02-08] MEDS: FAMOTIDINE 20 MG TAB PO SCH (08:14)
[2017-02-08] MEDS: HEPARIN SODIUM,PORCINE 5,000 UNIT/ML 1 ML VIAL SQ SCH (08:14)
--- NOTE | 2017-02-08 13:53 | P.DS ---
Providers Date of admission: 02/03/17 08:05 Expected date of discharge: 02/08/17 Attending physician: Roland Keene Consults: 02/03/17 11:58 Consult Physician Routine Consulting Provider: Rajeev Wise Consult Reason/Comments: Medical management Do you want consulting provider notified?: Yes Primary care physician: Dale Alvarez [facility] Course: This is a 61-year-old female who was admitted to the hospital. Patient underwent low anterior resection for diverticulitis. Please see chart for details. Procedures: Low anterior section Patient Condition at Discharge: Good Plan - Discharge Summary New Discharge Prescriptions: New Docusate [Colace] 100 mg PO BID #20 capsule HYDROcodone/APAP 7.5-325MG [[place]rie 7.5] 1 each PO Q4H PRN #60 tab PRN Reason: Pain Discharge Medication List Docusate [Colace] 100 mg PO BID #20 capsule 02/08/17 [Rx] HYDROcodone/APAP 7.5-325MG [[place]uthrie 7.5] 1 each PO Q4H PRN #60 tab 02/08/17 [Rx] Follow up Appointment(s)/Referral(s): Roland Keene MD [STAFF PHYSICIAN] - 1 Week Discharge Disposition: HOME SELF-CARE
--- NOTE | 2017-02-08 13:54 | P.PN ---
Progress Note - Text The patient is resting comfortably in her bed. She has had some minimal complaints of incisional pain. She is tolerating a soft diet. On exam her vital signs are. Her abdomen soft. Her incision site is clean dry tach. Status post low anterior section. Patient will be discharged home in a.m.
[2017-02-08] MEDS: LEVOFLOXACIN 500 MG TAB PO SCH (14:17)
[2017-02-08 15:02] VITALS: BP 125/69; PULSE 99; TEMP 98.9
--- NOTE | 2017-02-08 17:23 | P.PN ---
Subjective date of service 02/08/2017. Progress note being dictated for Dr. Marcos. interval history: This a 61-year-old gentleman status post low anterior resection, repair of incisional hernia for diverticulitis and multiple other medical issues. Ambulating, tolerating increase in exertion well. Good diet intake, consumed oatmeal this morning with no nausea vomiting or diarrhea. positive bowel movement. pain controlled. Denies chest pain, palpitations or increasing shortness of breath. afebrile. Objective - Vital Signs Vital signs: Vital Signs Temp 98.5 F 02/08/17 07:00 Pulse 82 02/08/17 08:00 Resp 16 02/08/17 08:00 BP 137/74 02/08/17 07:00 Pulse Ox 93 L 02/08/17 07:00 Intake & Output 02/07/17 02/08/17 02/08/17 18:59 06:59 18:59 Intake Total 960 1300 Output Total 1100 Balance -140 1300 Weight 50.802 kg Intake: IV 300 D5-0.45% NaCl with KCl 300 20Meq/l 1,000 ml @ 75 mls /hr IV .[id number] [facility] Rx#: [id number] Oral 660 1300 Output: Urine 1100 Other: Voiding Method Toilet Toilet Toilet # Voids 3 1 2 # Bowel Movements 0 - Exam PHYSICAL EXAM: VITAL SIGNS: [ as above] GENERAL: [ sitting up in bed, no acute distress] HEENT: [Pupils equal conjunctiva normal. mucosa moist] NECK: [Supple, no JVD] RESPIRATORY EFFORT:[ normal] LUNGS: [ clear to auscultation, diminished bases,no wheezes rhonchi or crackles] CARDIOVASCULAR[ regular S1 and S2, no murmurs rubs or gallops, no edema] GI: [Abdomen soft, nontender, positive bowel sounds. mid-line abdominal dressing present with old drainage noted] PSYCH: [Alert and oriented -3, mood and affect normal.] NEURO: no focal deficit, moves all 4 extremities, strength and sensation grossly intact - Labs CBC & Chem 7: 02/06/17 07:07 02/06/17 07:07 Labs: Microbiology - Last 24 Hours (Table) 02/05/17 11:04 Blood Culture - Preliminary Blood No Growth after 72 hours 02/04/17 19:15 Urine Culture - Preliminary Urine,Catheterized Assessment and Plan Plan: 1. [status post low anterior resection, repair of incisional hernia for diverticulitis]. 2. leukocytosis, possibly reactive, improved]. 3. possible atelectasis, early bronchitis improving no evidence of pneumonia]. 4. [ history of nicotine dependence]. plan: Continue on current medication regime ,monitoring and symptomatic treatment. Patient doing well today and anticipating discharge from surgery. Recommend Levaquin for 5 days related to early bronchitis. Aggressive pulmonary toileting, patient instructed to continue IS 10 times an hour while awake while at home. follow-up with PCP Dr. Alvarez in 1 week. further recommendations to follow. The impression and plan of care has been dictated as directed. : I performed a H&P examination of this patient and discussed the same with the dictator. I agree with the dictator's note. Any additional findings/opinions/ etc. will be noted.
== END 2017-02-08 16:11 | disposition home or self-care (01) | DRG 330 ==
LOC: 2ORWHC 08:05 → 5MS5E 13:47
PROVIDERS: ADMIT Surgery; ATTEND Surgery
PROC: 0WQF0ZZ Repair Abdominal Wall, Open Approach (ICD-10-PCS; 2017-02-03)
PROC: 0DBM0ZZ Excision of Descending Colon, Open Approach (ICD-10-PCS; principal; 2017-02-03 10:05)
DX: K57.80 Diverticulitis of intestine, part unspecified, with perforation and abscess without bleeding (principal); J98.11 Atelectasis; E11.65 Type 2 diabetes mellitus with hyperglycemia; K43.2 Incisional hernia without obstruction or gangrene; F17.200 Nicotine dependence, unspecified, uncomplicated; R00.0 Tachycardia, unspecified; J40 Bronchitis, not specified as acute or chronic; Z88.0 Allergy status to penicillin; Z91.040 Latex allergy status; Z82.49 Family history of ischemic heart disease and other diseases of the circulatory system
CPT/HCPCS: 71010; 80048; 80053; 81001; 85025; 86850; 86900; 86901; 87040; 87086; 88302; 88304; 88307; 94760

== ENCOUNTER 2022-04-22 17:31 | Inpatient (IN) | payer MEDICARE, OTHER ==
[2022-04-22] MEDS ORDERED: HYDROmorphone 0.5 MG/0.5 ML SYRINGE IVP STA (17:39)
--- NOTE | 2022-04-22 17:44 | ED ---
General Adult HPI - General Stated complaint: fell - hip pain Time Seen by Provider: 04/22/22 17:35 Source: patient, EMS, RN notes reviewed Mode of arrival: EMS Limitations: no limitations - History of Present Illness Initial comments: Patient is a pleasant 66-year-old female presenting to the emergency department with concerns with right hip pain. Patient had a fall less than an hour ago. Patient tripped with her slipper on a cord and landed onto her right hip. No other area of injury or concern. No head injury or loss of consciousness. Patient is unable to bear weight on the right hip. - Related Data Home Medications Medication Instructions Recorded Confirmed ALPRAZolam [Xanax] 0.25 mg PO HS PRN 04/22/22 04/22/22 Escitalopram Oxalate [Lexapro] 20 mg PO DAILY 04/22/22 04/22/22 Metoprolol Succinate [Toprol XL] 50 mg PO DAILY 04/22/22 04/22/22 Allergies Allergy/AdvReac Type Severity Reaction Status Date / Time latex Allergy Itching, Verified 04/22/22 18:07 RED SKIN Penicillins Allergy Rash/Hives Verified 04/22/22 18:07 mold AdvReac RUNNY Verified 04/22/22 18:07 NOSE,SNEEZING Review of Systems ROS Statement: Those systems with pertinent positive or pertinent negative responses have been documented in the HPI. ROS Other: All systems not noted in ROS Statement are negative. Constitutional: Denies: fever Eyes: Denies: eye pain ENT: Denies: ear pain Respiratory: Denies: cough Cardiovascular: Denies: chest pain Endocrine: Denies: fatigue Gastrointestinal: Denies: abdominal pain Genitourinary: Denies: dysuria Musculoskeletal: Reports: as per HPI. Denies: back pain Skin: Denies: rash Neurological: Denies: weakness Past Medical History Past Medical History: No Reported History Additional Past Medical History / Comment(s): diverticulosis, History of Any Multi-Drug Resistant Organisms: None Reported Past Surgical History: Section Additional Past Surgical History / Comment(s): COLONOSCOPY, Past Anesthesia/Blood Transfusion Reactions: Motion Sickness Past Psychological History: No Psychological Hx Reported Additional Psychological History / Comment(s): pt is independant. lives w/daughter and son in law in single story home that has 2 steps to get into. has 1 cat, works for [employer]. no medical equipment or outside services. Past Alcohol Use History: None Reported Additional Past Alcohol Use History / Comment(s): STARTED SMOKING AT AGE 42 SMOKES 1/2PPD Past Drug Use History: None Reported - Past Family History Father Family Medical History: No Reported History Additional Family Medical History / Comment(s): healthy Mother Family Medical History: Hypertension General Exam Limitations: no limitations General appearance: alert, in no apparent distress Head exam: Present: normocephalic Eye exam: Present: normal appearance Neck exam: Present: normal inspection. Absent: tenderness Respiratory exam: Present: normal lung sounds bilaterally Cardiovascular Exam: Present: regular rate, normal rhythm Expanded Peripheral pulses: 2+: Posterior Tibialis (R), Dorsalis Pedis (R) GI/Abdominal exam: Present: soft. Absent: tenderness Extremities exam: Present: tenderness (Right anterior hip. Leg is shortened and internally rotated. Distally the extremity is neurovascular intact.) Neurological exam: Present: alert Psychiatric exam: Present: normal affect, normal mood Skin exam: Present: normal color Course Vital Signs 04/22/22 17:35 Temperature 98.0 F Pulse Rate 96 Respiratory 20 Rate Blood Pressure 176/90 O2 Sat by Pulse 94 L Oximetry Medical Decision Making - Medical Decision Making Patient reevaluated. Patient updated on results and plan. Case discussed with Dr. Sanchez, who will admit covering orthopedic call. She does request an by mouth after midnight and medicine consult. - Radiology Data Radiology results: image reviewed (Right IT fracture) Disposition Clinical Impression: Fall, Hip fracture Disposition: ADMITTED IP TO THIS [facility] Condition: Stable Is patient prescribed a controlled substance at d/c from ED?: No Time of Disposition: 18:41
[2022-04-22] MEDS ORDERED: NALOXONE 0.4 MG/ML 1 ML VIAL IV PRN (18:41)
[2022-04-22] MEDS ORDERED: ACETAMINOPHEN TAB 325 MG TAB PO PRN (18:41)
--- NOTE | 2022-04-22 18:50 | XR ---
EXAMINATION: XR chest 1V portable DATE AND TIME: 04/22/2022 6:01 PM CLINICAL INDICATION: Pain; fall TECHNIQUE: AP radiograph. COMPARISON: 02/04/17 FINDINGS: The lungs are clear. The pleural spaces are negative. The cardiac silhouette is not enlarged. The remainder of the mediastinal silhouette is unremarkable. The skeletal structures and soft tissues are negative for acute findings. IMPRESSION: NO ACUTE PROCESS.
--- NOTE | 2022-04-22 18:53 | XR ---
PROCEDURE: XR Hip RT and AP Pelvis - 3V DATE AND TIME: 04/22/2022 6:01 PM CLINICAL INDICATION: Pain; fall TECHNIQUE: 2 AP views and a crosstable lateral view COMPARISON: None FINDINGS: There is prominent soft tissue swelling about the right hip with an acute comminuted intert rochanteric fracture right hip. Right femoral head is not displaced. No other fractures. IMPRESSION: Right intertrochanteric fracture.
[2022-04-22] MEDS: SODIUM CHLORIDE 0.9% 1,000 ML IV SCH (19:53)
[2022-04-22 20:05] LABS: Basophils # (A) 0.1 k/uL (0-0.2); Basophils % (A) 0 %; Eosinophils # (A) 0.2 k/uL (0-0.7); Eosinophils % (A) 1 %; HCT 45.4 % (34.0-46.0); HGB 14.3 gm/dL (11.4-16.0); Lymphocytes # (A) 0.7 k/uL (1.0-4.8); Lymphocytes % (A) 4 %; MCH 28.4 pg (25.0-35.0); MCHC 31.5 g/dL (31.0-37.0); MCV 90.2 fL (80.0-100.0); Mean Platelet Volume 6.5; Monocytes # (A) 0.6 k/uL (0-1.0); Monocytes % (A) 4 %; Neutrophils % (A) 91 %; Platelet Count 225 k/uL (150-450); RBC 5.03 m/uL (3.80-5.40); RDW 12.8 % (11.5-15.5); WBC 16.5 k/uL (3.8-10.6)
[2022-04-22 20:14] LABS: ALT 12 U/L (4-34); AST 23 U/L (14-36); African American GFR (CKD) >90 (>60 ml/min/1.73 sqM); Albumin 4.1 g/dL (3.5-5.0); Alkaline Phosphatase 102 U/L (38-126); Anion Gap 9 mmol/L; Blood Urea Nitrogen 14 mg/dL (7-17); Calcium 9.1 mg/dL (8.4-10.2); Carbon Dioxide 27 mmol/L (22-30); Chloride 100 mmol/L (98-107); Glucose 120 mg/dL (74-99); Non-African American GFR(CKD) >90 (>60 ml/min/1.73 sqM); Potassium 4.7 mmol/L (3.5-5.1); Prothrombin Time 10.7 sec (9.0-12.0); Sodium 136 mmol/L (137-145); Total Bilirubin 0.5 mg/dL (0.2-1.3); Total Protein 6.9 g/dL (6.3-8.2)
[2022-04-22] MEDS: HYDROmorphone 0.5 MG/0.5 ML SYRINGE IVP PRN (21:12)
[2022-04-23] MEDS: HYDROmorphone 0.5 MG/0.5 ML SYRINGE IVP PRN (00:44)
[2022-04-23] MEDS: HYDROmorphone 1 MG/ML 1 ML SYRINGE IVP PRN ×2 (03:31→12:35)
--- NOTE | 2022-04-23 07:11 | P.CONS ---
History of Present Illness - History of Present Illness This is a pleasant 66 years old female with past medical history of hypertens ion, anxiety and depression. Patient states that while she was walking her slippers got caught in the tablet cord and she fell on her right side, she denies headache trauma or headache or neck pain. She has pain in the right hip area of the right knee and her right leg is shortened and externally rotated. Currently she is getting pain medication and states that her pain is controlled as 2/10, she does not need more pain medication She denies chest pain or dyspnea. Acute diarrheal vomiting or abdominal pain. No dysuria or urgency. No headache or dizziness. No numbness or weakness. She smokes about 7 cigarettes per day and she was counseled to quit but she declines and declines nicotine patch. No alcohol or illicit drugs. Hemodynamically is stable, she is slightly tachycardic from anxiety and pain. She is saturating 94% on room air. Labs showed leukocytosis at 16.5, rest of CBC, INR, BMP, liver enzymes are unremarkable. Chest x-ray: No acute process. Hip pelvis x-ray: Right intertrochanteric fracture In the emergency room she received Dilaudid and normal saline Review of Systems Review of systems CONSTITUTIONAL: No fever, no malaise, no fatigue. HEENT: No recent visual problems or hearing problems. Denied any sore throat. CARDIOVASCULAR: No orthopnea, PND, no palpitations, no syncope. PULMONARY: No shortness of breath, no cough, no hemoptysis. GASTROINTESTINAL: No diarrhea, no nausea, no vomiting, no abdominal pain. Normoa ctive bowel sounds. NEUROLOGICAL: No headaches, no weakness, no numbness. HEMATOLOGICAL: Denies any bleeding or petechiae. GENITOURINARY: Denies any burning micturition, frequency, or urgency. MUSCULOSKELETAL/RHEUMATOLOGICAL: Denies any joint pain, swelling, or any muscle pain. ENDOCRINE: Denies any polyuria or polydipsia. Past Medical History Past Medical History: No Reported History Additional Past Medical History / Comment(s): diverticulosis, History of Any Multi-Drug Resistant Organisms: None Reported Past Surgical History: Section Additional Past Surgical History / Comment(s): COLONOSCOPY, Past Anesthesia/Blood Transfusion Reactions: Motion Sickness Past Psychological History: No Psychological Hx Reported Additional Psychological History / Comment(s): pt is independant. lives w/daughter and son in law in single story home that has 2 steps to get into. has 1 cat, works for [employer], [employer]. no medical equipment or outside services. Past Alcohol Use History: None Reported Additional Past Alcohol Use History / Comment(s): STARTED SMOKING AT AGE 42 SMOKES 1/2PPD Past Drug Use History: None Reported - Past Family History Father Family Medical History: No Reported History Additional Family Medical History / Comment(s): healthy Mother Family Medical History: Hypertension Medications and Allergies Home Medications Medication Instructions Recorded Confirmed Type ALPRAZolam [Xanax] 0.25 mg PO HS PRN 04/22/22 04/22/22 History Escitalopram Oxalate [Lexapro] 20 mg PO DAILY 04/22/22 04/22/22 History Metoprolol Succinate [Toprol XL] 50 mg PO DAILY 04/22/22 04/22/22 History Allergies Allergy/AdvReac Type Severity Reaction Status Date / Time latex Allergy Itching, Verified 04/22/22 18:07 RED SKIN Penicillins Allergy Rash/Hives Verified 04/22/22 18:07 mold AdvReac RUNNY Verified 04/22/22 18:07 NOSE,SNEEZING Physical Exam Vitals: Vital Signs Temp Pulse Resp BP Pulse Ox 04/23/22 03:30 100 20 140/80 04/22/22 19:36 103 H 19 162/90 92 L 04/22/22 17:35 98.0 F 96 20 176/90 94 L Intake and Output 04/22/22 04/22/22 04/23/22 14:59 22:59 06:59 Other: Weight 54.885 kg GENERAL: The patient is alert and oriented x3, not in any acute distress. Well developed, well nourished. HEENT: Pupils are round and equally reacting to light. EOMI. No scleral icterus. No conjunctival pallor. Normocephalic, atraumatic. No pharyngeal erythema. No thyromegaly. CARDIOVASCULAR: S1 and S2 present. No murmurs, rubs, or gallops. PULMONARY: Chest is clear to auscultation, no wheezing or crackles. -ABDOMEN: Soft, nontender, nondistended, normoactive bowel sounds. No palpable organomegaly. Prince catheter in a Place MUSCULOSKELETAL: No joint swelling or deformity. -EXTREMITIES: No cyanosis, clubbing, or pedal edema. Right leg is shortened and externally rotated NEUROLOGICAL: Gross neurological examination did not reveal any focal deficits. SKIN: No rashes. no petechiae. Results CBC & Chem 7: 04/22/22 19:43 04/22/22 19:43 Labs: Abnormal Lab Results - Last 24 Hours (Table) 04/22/22 04/22/22 Range/Units 19:43 19:43 WBC 16.5 H (3.8-10.6) k/uL Neutrophils # 15.0 H (1.3-7.7) k/uL Lymphocytes # 0.7 L (1.0-4.8) k/uL Sodium 136 L (137-145) mmol/L Glucose 120 H (74-99) mg/dL Assessment and Plan Assessment: Fall without losing consciousness Acute Right intertrochanteric fracture Hypertension History of anxiety and depression Plan: This is a pleasant 66 years old female who presents with right hip fracture Continue with them management Check urine analysis and continue with urine catheter management continue with gentle hydration Labs and medication were reviewed.. Continue same treatment. Continue with symptomatic treatment. Resume home medication. Monitor lytes and vitals. DVT and GI prophylaxis. Further recommendations as per clinical course of the patient DVT prophylaxis: deferred to surgery primary team GI Prophylaxis: Pepcid PT/OT: Pending Thank you for consulting, we will follow up with the
[2022-04-23] MEDS ORDERED: DEXTROSE 50% SYRINGE 50 ML IVP PRN ×2 (08:39)
[2022-04-23] MEDS: FAMOTIDINE 20 MG/2 ML VIAL IV SCH ×2 (09:17→21:26)
[2022-04-23] MEDS: SODIUM CHLORIDE 0.9% 1,000 ML IV SCH ×3 (09:17→19:52)
[2022-04-23] MEDS: methylPREDNISolone SOD SUCCI 40 MG/ML 1 ML VIAL IV SCH ×2 (09:17→21:27)
--- NOTE | 2022-04-23 09:51 | P.CNOR ---
History of Present Illness - [facility] Consult date: 04/23/22 Consult reason: fracture (Right hip) History of present illness: This is a 66-year-old female who presented to the emergency department on 04/22/2022 with severe right hip pain after tripping over some electrical cords and falling onto her right hip. On exam and x-ray in the emergency department she was found to have a low basilar neck fracture of the right femur. She is admitted to our service for surgical intervention and care. The patient has a history of smoking and asthma. She is taking no blood thinners at this time. Past Medical History Past Medical History: No Reported History Additional Past Medical History / Comment(s): diverticulosis, History of Any Multi-Drug Resistant Organisms: None Reported Past Surgical History: Section Additional Past Surgical History / Comment(s): COLONOSCOPY, Past Anesthesia/Blood Transfusion Reactions: Motion Sickness Past Psychological History: No Psychological Hx Reported Additional Psychological History / Comment(s): pt is independant. lives w/daughter and son in law in single story home that has 2 steps to get into. has 1 cat, works for [employer]. no medical equipment or outside services. Past Alcohol Use History: None Reported Additional Past Alcohol Use History / Comment(s): STARTED SMOKING AT AGE 42 SMOKES 1/2PPD Past Drug Use History: None Reported - Past Family History Father Family Medical History: No Reported History Additional Family Medical History / Comment(s): healthy Mother Family Medical History: Hypertension Medications and Allergies Home Medications Medication Instructions Recorded Confirmed Type ALPRAZolam [Xanax] 0.25 mg PO HS PRN 04/22/22 04/22/22 History Escitalopram Oxalate [Lexapro] 20 mg PO DAILY 04/22/22 04/22/22 History Metoprolol Succinate [Toprol XL] 50 mg PO DAILY 04/22/22 04/22/22 History Allergies Allergy/AdvReac Type Severity Reaction Status Date / Time latex Allergy Itching, Verified 04/22/22 18:07 RED SKIN Penicillins Allergy Rash/Hives Verified 04/22/22 18:07 mold AdvReac RUNNY Verified 04/22/22 18:07 NOSE,SNEEZING Physical Examination This is a pleasant 66-year-old female in no acute distress. She is alert and oriented 3. Exam of the head neck reveal no obvious deformity. She has full cervical spine motion without difficulty or pain. Exam of the upper extremities unremarkable. She has full shoulder, elbow, wrist and finger motion bilaterally. Neurovascular status the upper extremities is intact. Exam of the lower extremities reveals shortening and external rotation to the right leg. She has full foot and ankle motion bilaterally. Neurovascular status to the lower extremities is intact. Results X-rays of the pelvis and right hip reveal a low basilar neck fracture of the right hip with minimal displacement. No other fractures identified. - Labs Labs: Abnormal Lab Results - Last 24 Hours (Table) 04/22/22 04/22/22 Range/Units 19:43 19:43 WBC 16.5 H (3.8-10.6) k/uL Neutrophils # 15.0 H (1.3-7.7) k/uL Lymphocytes # 0.7 L (1.0-4.8) k/uL Sodium 136 L (137-145) mmol/L Glucose 120 H (74-99) mg/dL H & H 04/22/22 Range/Units 19:43 Hgb 14.3 (11.4-16.0) gm/dL Hct 45.4 (34.0-46.0) % Coagulation 04/22/22 Range/Units 19:43 INR 1.0 (<1.2) Result Diagrams: 04/22/22 19:43 04/22/22 19:43 Assessment and Plan (1) Fall Current Visit: Yes Status: Acute Code(s): W19.XXXA - UNSPECIFIED FALL, INITIAL ENCOUNTER SNOMED Code(s): 2787074 (2) Hip fracture Current Visit: Yes Status: Acute Code(s): S72.009A - FRACTURE OF UNSP PART OF NECK OF UNSP FEMUR, INIT SNOMED Code(s): 123851342 Plan: The clinical and x-ray findings are discussed with the patient. It is recommended she undergo a closed reduction with insertion of intertrochanteric nail of the right hip. The procedures discussed in detail including the possible risks and outcomes. We discussed the possibility of inpatient rehab postoperatively. After discussion and consideration the patient elects to proceed with surgery.
[2022-04-23 11:18] LABS: Glucose,Whole Blood 120 mg/dL (70-110)
[2022-04-23] MEDS: IPRATROPIUM-ALBUTEROL 3 ML NEB INHALATION SCH ×4 (11:51→19:44)
[2022-04-23] MEDS: INSULIN ASPART (NovoLOG) 100 UNIT/ML VIAL SQ SCH ×3 (12:27→21:26)
[2022-04-23] MEDS: METOPROLOL SUCCINATE (ER) 50 MG TAB.ER.24H PO SCH (12:34)
--- NOTE | 2022-04-23 13:30 | P.CNPUL ---
History of Present Illness Consult date: 04/23/22 Requesting physician: Andria Sanchez Reason for consult: COPD, hypoxemia Chief complaint: Low saturations. History of present illness: Pulmonary consult dated 04/23/2022. This is a very pleasant 66-year-old female that were asked to see for preoperative clearance. The patient apparently tripped on some power cords, and fractured her right hip. The patient is currently on 5 L of oxygen. Her sat urations are 92%. She's not short of breath. She has no known history of any lung disease. She is also receiving saline at 75 mL an hour. She does have a history of hypertension, anxiety/depression, and diverticular disease, with a previous bowel resection. She did smoke for about 20 years, at one half pack a day. We did recommend incentive spirometry, and updrafts. Clinically, she looks well. In my opinion, orthopedics could proceed with surgery. White count 16.5, hemoglobin 14.3, hematocrit 5.4, and platelet count 225,000. PT/INR/PTT are all normal. Sodium 136, with a normal potassium, chloride, CO2, anion gap, BUN, and creatinine. The rest of the comprehensive metabolic profile is normal. Chest x-ray shows no acute disease. Review of Systems REVIEW OF SYSTEMS: CONSTITUTIONAL: Right hip pain. NEUROLOGIC: [ Negative.] HEENT: [ Negative.] CARDIAC: [Negative.] PULMONARY: [Negative.] GI: [Negative.] : [Negative.] RHEUMATOLOGIC: [ Negative.] IMMUNOLOGIC: [ Negative.] ENDOCRINE: [Negative. ] DERMATOLOGIC: [Negative.] Past Medical History Past Medical History: No Reported History Additional Past Medical History / Comment(s): Diverticulosis, diverticulitis History of Any Multi-Drug Resistant Organisms: None Reported Past Surgical History: Bowel Resection, Section Additional Past Surgical History / Comment(s): Low anterior resection/repair incisional hernia, colonoscopy Past Anesthesia/Blood Transfusion Reactions: No Reported Reaction, Motion Sickness Smoking Status: Current every day smoker - Past Family History Father Family Medical History: No Reported History Additional Family Medical History / Comment(s): healthy Mother Family Medical History: Hypertension Medications and Allergies Home Medications Medication Instructions Recorded Confirmed Type ALPRAZolam [Xanax] 0.25 mg PO HS PRN 04/22/22 04/22/22 History Escitalopram Oxalate [Lexapro] 20 mg PO DAILY 04/22/22 04/22/22 History Metoprolol Succinate [Toprol XL] 50 mg PO DAILY 04/22/22 04/22/22 History Allergies Allergy/AdvReac Type Severity Reaction Status Date / Time latex Allergy Itching, Verified 04/22/22 18:07 RED SKIN Penicillins Allergy Rash/Hives Verified 04/22/22 18:07 mold AdvReac RUNNY Verified 04/22/22 18:07 NOSE,SNEEZING Physical Exam Osteopathic Statement: *. No significant issues noted on an osteopathic structural exam other than those noted in the History and Physical/Consult. Vitals: Vital Signs Temp Pulse Pulse Resp BP BP Pulse Ox 04/23/22 12:05 91 04/23/22 11:55 96 04/23/22 11:18 98.2 F 95 16 153/65 90 L 04/23/22 08:00 98.2 F 114 H 18 140/85 87 L 04/23/22 06:00 94 18 04/23/22 03:30 100 20 140/80 04/22/22 19:36 103 H 19 162/90 92 L 04/22/22 17:35 98.0 F 96 20 176/90 94 L Intake and Output 04/22/22 04/23/22 04/23/22 22:59 06:59 14:59 Other: Weight 54.885 kg 54.885 kg No acute distress, oriented 3. No conversational dyspnea or use of accessory muscles. HEENT examination is grossly unremarkable. Neck supple. Full range of motion. No adenopathy thyromegaly or neck vein distention. Cardiovascular examination reveals regular rhythm rate. S1-S2 normal. No S3 or S4. No discernible murmur noted. Heart rate 91 bpm. Lungs reveal clear breath sounds. Breath sounds are equal bilaterally. No adventitious lung sounds including wheezes rhonchi or crackles. Abdomen soft bowel sounds are heard. No masses or tenderness. Extremities are intact. No cyanosis clubbing or edema. Skin is without rash or lesion. Neurologic examination is brief but nonfocal. Results - Laboratory Findings CBC and BMP: 04/22/22 19:43 04/22/22 19:43 PT/INR, D-dimer PT 10.7 sec (9.0-12.0) 04/22/22 19:43 INR 1.0 (<1.2) 04/22/22 19:43 Abnormal lab findings: Abnormal Labs 04/22/22 04/22/22 04/23/22 19:43 19:43 11:17 WBC 16.5 H Neutrophils # 15.0 H Lymphocytes # 0.7 L Sodium 136 L Glucose 120 H POC Glucose (mg/dL) 120 H - Diagnostic Findings Chest x-ray: image reviewed Assessment and Plan Assessment: Status post fall, with right hip fracture. Low saturations, which may relate to some intrinsic pulmonary disease, such as COPD, from previous tobacco use. History of hypertension. Diverticular disease, status post bowel resection. History of anxiety/depression. Plan: Plan dated 04/23/2022. We ordered updrafts, and an incentive spirometer for the patient. The patient's currently on oxygen at 5 L. She looks very stable. In my opinion, orthopedics could proceed with surgery. We will continue to follow the patient make recommendations along the way. She may have some intrinsic pulmonary disease from previous tobacco use. There is some discrepancy between what the chart said about how much she smoked, and what she reports. Outpatient pulmonary fun ction test, at a later date, might be useful. Time with Patient: Greater than 30
[2022-04-23] MEDS ORDERED: LACTATED RINGERS 1,000 ML IV ONE (16:23)
[2022-04-23 16:32] LABS: Glucose,Whole Blood 124 mg/dL (70-110)
[2022-04-23] MEDS ORDERED: ONDANSETRON 4 MG/2 ML VIAL ONE (16:41)
[2022-04-23] MEDS ORDERED: ONDANSETRON 4 MG/2 ML VIAL IVP ONE (16:42)
[2022-04-23] MEDS ORDERED: NALOXONE 0.4 MG/ML 1 ML VIAL ONE (17:23)
[2022-04-23] MEDS ORDERED: MIDAZOLAM 2 MG/2 ML VIAL ONE (17:23)
[2022-04-23] MEDS ORDERED: TRANEXAMIC ACID IN NACL,ISO-OS 1,000 MG/100 ML BAG ONE (17:23)
[2022-04-23] MEDS ORDERED: fentaNYL (PF) 50 MCG/ML 2 ML AMP ONE (17:23)
[2022-04-23] MEDS ORDERED: KETAMINE 10 MG/ML 20 ML VIAL ONE (17:23)
[2022-04-23] MEDS ORDERED: PHENYLEPHRINE-0.9% NACL SYG 1,000 MCG/10 ML SYRINGE ONE (17:23)
[2022-04-23] MEDS ORDERED: FLUMAZENIL 0.1 MG/ML 5 ML VIAL IVP ONE (17:23)
[2022-04-23] MEDS ORDERED: HYDROmorphone 0.5 MG/0.5 ML SYRINGE IVP PRN ×3 (19:06)
--- NOTE | 2022-04-23 19:06 | P.OP ---
Date of Procedure: 04/23/22 Preoperative Diagnosis: 1. Displaced right intertrochanteric hip fracture 2. COPD 3. Current cigarette smoker Postoperative Diagnosis: Same Procedure(s) Performed: Operative fixation of right intertrochanteric hip fracture with short intramedullary hip screw Implants: Qiana gamma nail 10 mm diameter, 90 mm lag screw, 35 mm distal interlocking screw Anesthesia: spinal Surgeon: Joey Dorsey Cotton Header #1: Nate Pollard Estimated Blood Loss (ml): 100 IV fluids (ml): 500 Pathology: none sent Condition: stable Disposition: PACU Indications for Procedure: I met with the patient and their family preoperatively to discuss their injury and treatment options. They have an extra-capsular, intertrochanteric hip fracture and my recommendation was to stabilize the fracture with an intramedullary hip screw to facilitate early mobilization. We discussed the potential risks and complications of this surgical procedure including but certainly not limited to risks from anesthesia, superficial infection, deep infection, fracture nonunion, fracture malunion, hardware failure including broken hardware, varus collapse with lag screw cut out of the femoral head, progression of hip arthritis, limb length discrepancy, symptomatic hardware, need for further surgery including hardware removal and conversion to arthroplasty, DVT, PE, acute coronary event, pressure ulcers, urinary tract infection, failure to thrive, an inability to regain preinjury level of function, and possibly . The patient and their family understand these potential complications and also awknowledge that other less common complications are possible. They provided both their verbal and written consent to go forward with operative fixation of their hip fracture with an intramedullary hip screw. Description of Procedure: The patient was identified in preoperative holding and the correct operative extremity was marked with my initials. I reviewed the consent form with the patient and their family and all of their questions were answered. The patient was then brought back to the operating room by anesthesia. Anesthesia, preoperative antibiotics, and tranexamic acid were given by the anesthesia team while on the rrickreall. Both ankles were padded with webril and boots for the [place] table were applied. The patient was then carefully transferred onto the [place] table. A perineal post was immediately placed. The contralateral arm was secured on a well-padded arm casillas. The ipsilateral arm was draped across the chest and secured with a pillow, foam, and paper tape to allow access to the proximal femur. Nonsterile drapes were applied to the operative extremity. The height of the table was elevated and the contralateral extremity was dropped towards the floor to facilitate imaging. A timeout was performed identifying the correct patient, operative extremity, and procedure. Fluoroscopy was brought in to assess the fracture. A provisional reduction was performed using longitudinal traction, adduction, and internal rotation. An AP and lateral view were obtained to assess the reduction. The operative extremity was then prepped and draped in the standard sterile fashion. A straight incision was made at the tip of the greater trochanter and extended proximally for 3 cm. Skin and subcutaneous tissues were incised sharply. The underlying fascia was incised in line with the skin incision. An awl was placed just medial to the tip of the greater trochanter on the AP view and colinear with the canal on the lateral view. A 3.2 mm guide pin was then advanced into the proximal femur. The position of the guidepin was verified with fluoroscopy. An opening reamer and soft tissue cannula were placed over the guidepin and used to open the proximal femur to the level of the lesser trochanter. The 3.2 mm guide pin and opening reamer were removed. A short gamma nail was dispensed, hooked up to the targeting arm and I verified that the trochar through the targeting arm lined up with the slots on the nail. The nail was then impacted into the proximal femur until the appropriate depth had been reached. A small stab incision was made over the lateral aspect of the femur using the targeting arm as a reference for the lag screw. Incision was carried down to the skin and fascia down to the lateral cortex of the femur. The trocar was then placed up to the lateral cortex of the femur and a guidepin was placed in the low center position on the AP view and centered in the femoral head on the lateral view. Once the position of the guidewire was verified, we reamed to appropriate depth and placed a lag screw over the guidewire and into the femoral head. The position of the lag screw was assessed with fluoroscopy. The guidewire was then removed from the femoral head. The set screw was placed proximally, brought fully down and then released a quarter turn to allow compression. A final stab incision was made over the lateral femur at the site of the distal interlocking screw, again using the targeting arm as a reference. The trocar and sleeve were placed to the lateral cortex of the femur. We then drilled and placed a distal interlocking screw. Final fluoroscopic images were taken showing excellent reduction of the fracture and appropriate position of the implants. All wounds were thoroughly irrigated and closed in layers. Sterile dressings were applied. The drapes were taken down, the patient was transferred off the [place] table, and was brought to recovery having tolerated the procedure well. Nate Pollard PA-C was required as a skilled assistant professor of art for patient positioning, retraction, placement of implants, closure of wounds, and application of dressings. PLAN: The patient can weight-bear as tolerated on their operative extremity. 2 doses of postoperative antibiotics. DVT prophylaxis with aspirin 81 mg twice a day starting the day of surgery. Appreciate Internal Medical assistance with perioperative medical management. Discharge planning in process.
[2022-04-23] MEDS: SYMBICORT 160-4.5 MCG INHALER INHALATION SCH (19:34)
[2022-04-23] MEDS ORDERED: IPRATROPIUM-ALBUTEROL 3 ML NEB INHALATION PRN (19:35)
--- NOTE | 2022-04-23 20:49 | FL ---
Intraoperative/procedural fluoroscopic services were provided. Total fluoroscopy time is 1 minute 8 s econds with a total of 4 submitted images to PACS. Please see the operative/procedural note for furth er details.
[2022-04-23] MEDS ORDERED: FAMOTIDINE 20 MG/2 ML VIAL IV SCH (21:00)
[2022-04-23] MEDS: ASPIRIN 81 MG PO SCH (21:25)
[2022-04-23] MEDS: ESCITALOPRAM 20 MG TAB PO SCH (21:25)
[2022-04-23] MEDS: SENNOSIDES-DOCUSATE SODIUM 1 EACH TAB PO SCH (21:26)
[2022-04-23] MEDS: HEPARIN SODIUM,PORCINE/PF 5,000 UNIT/0.5 ML SYRINGE SQ SCH (21:26)
[2022-04-23] MEDS: TRANEXAMIC ACID IN NACL,ISO-OS 1,000 MG in SALINE 1 100ML.BAG IVPB SCH ×2 (22:22→22:24)
[2022-04-23] MEDS: HYDROcodone/APAP 5-325MG 1 EACH TAB PO PRN (22:30)
[2022-04-24 00:23] LABS: Glucose,Whole Blood 132 mg/dL (70-110)
[2022-04-24 01:46] LABS: Basophils # (A) 0.02 X 10*3/uL (0.00-0.10); Basophils % (A) 0.1 %; Eosinophils # (A) 0 X 10*3/uL (0.04-0.35); Eosinophils % (A) 0 %; HCT 40.4 % (37.2-46.3); HGB 12.1 g/dL (12.0-15.0); Immature Grans, Automated 0.3 %; Lymphocytes # (A) 0.74 X 10*3/uL (0.90-5.00); Lymphocytes % (A) 4.3 %; MCV 93.5 fL (80.0-97.0); Mean Platelet Volume 8.6 fL (9.5-12.2); NRBC Per 100 WBC 0 /100 WBCS (0.0-0.0); Neutrophils # (A) 15.11 X 10*3/uL (1.80-7.70); Neutrophils % (A) 88.3 %; Platelet Count 178 X 10*3/uL (140-440); RBC 4.32 X 10*6/uL (4.10-5.20); RDW 12.7 % (11.5-14.5); WBC 17.12 X 10*3/uL (4.50-10.00)
[2022-04-24] MEDS: SODIUM CHLORIDE 0.9% 1,000 ML IV SCH (02:51)
[2022-04-24] MEDS: SYMBICORT 160-4.5 MCG INHALER INHALATION SCH ×2 (07:29→19:06)
[2022-04-24] MEDS: IPRATROPIUM-ALBUTEROL 3 ML NEB INHALATION SCH ×4 (07:29→19:06)
[2022-04-24] MEDS: HYDROcodone/APAP 5-325MG 1 EACH TAB PO PRN ×3 (08:35→19:56)
[2022-04-24] MEDS: FAMOTIDINE 20 MG/2 ML VIAL IV SCH (08:36)
[2022-04-24] MEDS: ASPIRIN 81 MG PO SCH ×2 (08:36→21:29)
[2022-04-24] MEDS: HEPARIN SODIUM,PORCINE/PF 5,000 UNIT/0.5 ML SYRINGE SQ SCH ×2 (08:36→21:29)
[2022-04-24] MEDS: METOPROLOL SUCCINATE (ER) 50 MG TAB.ER.24H PO SCH (08:36)
[2022-04-24] MEDS: methylPREDNISolone SOD SUCCI 40 MG/ML 1 ML VIAL IV SCH ×2 (08:36→21:30)
[2022-04-24 08:37] LABS: Glucose,Whole Blood 144 mg/dL (70-110)
[2022-04-24] MEDS: INSULIN ASPART (NovoLOG) 100 UNIT/ML VIAL SQ SCH ×4 (08:37→21:30)
[2022-04-24] MEDS: ESCITALOPRAM 20 MG TAB PO SCH (09:09)
--- NOTE | 2022-04-24 09:35 | P.PN ---
Subjective Progress Note Date: 04/24/22 Principal diagnosis: Status post right hip gamma nail This is a 66 year-old female post right hip gamma nail. This is post-op day 1. The patient was evaluated at the bedside today. The patient denies nausea, vomiting, abdominal pain, shortness of breath, and chest pain this morning. She states her pain is controlled at this time. The patient has not been up with physical therapy. Objective - Vital Signs Vital signs: Vital Signs Temp 98.3 F 04/24/22 04:36 Pulse 88 04/24/22 07:41 Resp 16 04/24/22 04:36 BP 104/67 04/24/22 04:36 Pulse Ox 90 L 04/24/22 07:29 FiO2 Intake & Output 04/23/22 04/24/22 04/24/22 18:59 06:59 18:59 Intake Total 1550 1250 Output Total 800 Balance 750 1250 Weight 54.885 kg Intake: IV 1550 300 Sodium Chloride 0.9% 1, 600 000 ml @ 75 mls/hr IV . [id number] [facility] Rx#:[id number] Intake, IV Titration 950 Amount Sodium Chloride 0.9% 1, 900 000 ml @ 75 mls/hr IV . [id number] [facility] Rx#:[id number] ceFAZolin 2 gm In Sodium 50 Chloride 0.9% 50 ml @ 100 mls/hr IVPB Q8H [facility] Rx#: [id number] Output: Urine 700 Uretheral (Prince) 600 Estimated Blood Loss 100 Other: Voiding Method Indwelling Catheter - Exam The patient does not appear in acute distress. Alert and orientated x3. Dressing is clean dry and intact. No erythema or active drainage. Calf is soft and nontender. Good foot and ankle motion without difficulty. Sensation and circulatory status is intact. - Labs CBC & Chem 7: 04/23/22 21:43 04/22/22 19:43 Labs: Abnormal Lab Results - Last 24 Hours (Table) 04/23/22 04/23/22 04/23/22 Range/Units 11:17 16:30 21:43 WBC 17.12 H (4.50-10.00) X 10*3/uL MCHC 30.0 L (32.0-37.0) g/dL MPV 8.6 L (9.5-12.2) fL Immature Gran # 0.05 H (0.00-0.04) X 10*3/uL Neutrophils # 15.11 H (1.80-7.70) X 10*3/uL Lymphocytes # 0.74 L (0.90-5.00) X 10*3/uL Monocytes # 1.20 H (0.20-1.00) X 10*3/uL Eosinophils # 0 L (0.04-0.35) X 10*3/uL POC Glucose (mg/dL) 120 H 124 H (70-110) mg/dL 04/24/22 04/24/22 Range/Units 00:20 08:35 WBC (4.50-10.00) X 10*3/uL MCHC (32.0-37.0) g/dL MPV (9.5-12.2) fL Immature Gran # (0.00-0.04) X 10*3/uL Neutrophils # (1.80-7.70) X 10*3/uL Lymphocytes # (0.90-5.00) X 10*3/uL Monocytes # (0.20-1.00) X 10*3/uL Eosinophils # (0.04-0.35) X 10*3/uL POC Glucose (mg/dL) 132 H 144 H (70-110) mg/dL Assessment and Plan (1) Status post hip surgery Current Visit: Yes Status: Acute Code(s): Z98.890 - OTHER SPECIFIED POSTPROCEDURAL STATES SNOMED Code(s): 118668894 (2) Fall Current Visit: Yes Status: Acute Code(s): W19.XXXA - UNSPECIFIED FALL, INITIAL ENCOUNTER SNOMED Code(s): 8577895 (3) Hip fracture Current Visit: Yes Status: Acute Code(s): S72.009A - FRACTURE OF UNSP PART OF NECK OF UNSP FEMUR, INIT SNOMED Code(s): 362808250 Plan: 1. Continue pain control 2. Anticoagulation with Aspirin 81 mg BID 3. Start physical therapy and ambulation, weightbearing as tolerated with walker 4. Anticipate discharge to skilled rehab in 2-3 days.
--- NOTE | 2022-04-24 10:38 | P.PN ---
Subjective Progress Note Date: 04/24/22 This is a very pleasant 66-year-old female that were asked to see for preoperative clearance. The patient apparently tripped on some power cords, and fractured her right hip. The patient is currently on 5 L of oxygen. Her saturations are 92%. She's not short of breath. She has no known history of any lung disease. She is also receiving saline at 75 mL an hour. She does have a history of hypertension, anxiety/depression, and diverticular disease, with a previous bowel resection. She did smoke for about 20 years, at one half pack a day. We did recommend incentive spirometry, and updrafts. Clinically, she looks well. In my opinion, orthopedics could proceed with surgery. White count 16.5, hemoglobin 14.3, hematocrit 5.4, and platelet count 225,000. PT/INR/PTT are all normal. Sodium 136, with a normal potassium, chloride, CO2, anion gap, BUN, and creatinine. The rest of the comprehensive metabolic profile is normal. Chest x-ray shows no acute disease. The patient is seen today 04/24/2022 in follow-up on the regular medical floor. She is maintaining O2 saturations in the low 90s on 5 L/m per nasal cannula. She's been afebrile. Hemodynamically stable. She did undergo a fixation of the right internal trochanteric hip fracture with short intramedullary hip screw placement yesterday 04/23/2022. Her pain is been fairly well controlled. The plan is to have her up out of bed today. She is encouraged regarding the use of the incentive spirometer and cough and deep breathing. Blood glucose 144. She is continued on Symbicort, DuoNeb inhalations, IV Solu-Medrol. Heparin for DVT prophylaxis. Objective - Vital Signs Vital signs: Vital Signs Temp 98.3 F 04/24/22 04:36 Pulse 88 04/24/22 07:41 Resp 16 04/24/22 04:36 BP 104/67 04/24/22 04:36 Pulse Ox 90 L 04/24/22 07:29 FiO2 Intake & Output 04/23/22 04/24/22 04/24/22 18:59 06:59 18:59 Intake Total 1550 1250 180 Output Total 800 Balance 750 1250 180 Weight 54.885 kg Intake: IV 1550 300 Sodium Chloride 0.9% 1, 600 000 ml @ 75 mls/hr IV . [id number] [facility] Rx#:[id number] Intake, IV Titration 950 Amount Sodium Chloride 0.9% 1, 900 000 ml @ 75 mls/hr IV . [id number] [facility] Rx#:[id number] ceFAZolin 2 gm In Sodium 50 Chloride 0.9% 50 ml @ 100 mls/hr IVPB Q8H [facility] Rx#: [id number] Oral 180 Output: Urine 700 Uretheral (Prince) 600 Estimated Blood Loss 100 Other: Voiding Method Indwelling Catheter - Exam GENERAL EXAM: Alert, pleasant 66-year-old female, resting comfortably in bed, on 5 L nasal cannula. HEAD: Normocephalic. EYES: Normal reaction of pupils, equal size. NOSE: Clear with pink turbinates. THROAT: No erythema or exudates. NECK: No masses, no JVD. CHEST: No chest wall deformity. LUNGS: Equal air entry with no crackles, wheeze, rhonchi or dullness. CVS: S1 and S2 normal with no audible murmur, regular rhythm. ABDOMEN: No hepatosplenomegaly, normal bowel sounds, no guarding or rigidity. SPINE: No scoliosis or deformity SKIN: No rashes CENTRAL NERVOUS SYSTEM: No focal deficits, tone is normal in all 4 extremities. EXTREMITIES: Seem to the right hip clean and dry. There is no peripheral edema. No clubbing, no cyanosis. Peripheral pulses are intact. - Labs CBC & Chem 7: 04/23/22 21:43 04/22/22 19:43 Labs: Abnormal Lab Results - Last 24 Hours (Table) 04/23/22 04/23/22 04/23/22 Range/Units 11:17 16:30 21:43 WBC 17.12 H (4.50-10.00) X 10*3/uL MCHC 30.0 L (32.0-37.0) g/dL MPV 8.6 L (9.5-12.2) fL Immature Gran # 0.05 H (0.00-0.04) X 10*3/uL Neutrophils # 15.11 H (1.80-7.70) X 10*3/uL Lymphocytes # 0.74 L (0.90-5.00) X 10*3/uL Monocytes # 1.20 H (0.20-1.00) X 10*3/uL Eosinophils # 0 L (0.04-0.35) X 10*3/uL POC Glucose (mg/dL) 120 H 124 H (70-110) mg/dL 04/24/22 04/24/22 Range/Units 00:20 08:35 WBC (4.50-10.00) X 10*3/uL MCHC (32.0-37.0) g/dL MPV (9.5-12.2) fL Immature Gran # (0.00-0.04) X 10*3/uL Neutrophils # (1.80-7.70) X 10*3/uL Lymphocytes # (0.90-5.00) X 10*3/uL Monocytes # (0.20-1.00) X 10*3/uL Eosinophils # (0.04-0.35) X 10*3/uL POC Glucose (mg/dL) 132 H 144 H (70-110) mg/dL Assessment and Plan Assessment: Status post fall, with right hip fracture. Status post operative fixation of the right intertrochanteric hip fracture with short intramedullary hip screw basement on 04/23/2022. Postoperative day #1. Low saturations, which may relate to some intrinsic pulmonary disease, such as COPD, from previous tobacco use. History of hypertension. Diverticular disease, status post bowel resection. History of anxiety/depression. Plan: The patient was seen and evaluated Titrate the FiO2 as tolerated Assure and incentive spirometer every hour while awake Increase her activity as tolerated Continue bronchodilators We will continue to follow I have personally seen and examined the patient, performed the documentation and the assessment and plan as written. Number of minutes spent on the visit: 10.
[2022-04-24 11:17] LABS: Glucose,Whole Blood 137 mg/dL (70-110)
--- NOTE | 2022-04-24 13:52 | XR ---
EXAMINATION TYPE: XR chest 2V DATE OF EXAM: 04/24/2022 1:44 PM COMPARISON: Chest radiographs from 04/22/2022 TECHNIQUE: XR chest 2V Frontal and lateral views of the chest. CLINICAL INDICATION:Female, 66 years old with history of Pneumonia; FINDINGS: Lungs/Pleura: There is no evidence of focal consolidation, or pneumothorax. Bilateral pleural effusi ons obscuration of the right heart border. Pulmonary vascularity: Unremarkable. Heart/mediastinum: Cardiomediastinal silhouette is enlarged and stable. Musculoskeletal: No acute osseous pathology. IMPRESSION: 1. Obscuration of right heart border which may represent right middle lobe pneumonia versus rotated technique.. 2. Cardiomegaly with bilateral pleural effusions correlate with serum BNP.
--- NOTE | 2022-04-24 14:24 | P.PN ---
Subjective Progress Note Date: 04/24/22 This is a 66-year-old female who presents with mechanical fall resulting in right intratrochanteric fracture. She is postoperative day #1 operative fixation of right intertrochanteric hip fracture with short intramedullary hip screw with Dr. Dorsey. Patient also is a current smoker smokes about 7 to 10 cigarettes per day. Denies history of COPD, not using any inhalers at home. She is being followed by pulmonary this hospital stay. Patient continues on nasal cannula 4 L post operatively, denies use of home oxygen. D-Dimer has been checked at 1.08. Chest xray follow up completed showing possible right middle lobe pneumonia, also bilateral pleural effusions. Patient continues on bronchodilators will add empiric antibiotic coverage and also check BNP. Further recommendations to follow. Review of Systems Constitutional: Denied any fatigue denied any fever. Cardio vascular: denied any chest pain, palpitations Gastrointestinal: denied any nausea, vomiting, diarrhea, passing gas, had BM yesterday Pulmonary: Reports mild shortness of breath with exertion, cough Neurologic denied any new focal deficits All inpatient medications were reviewed and appropriate changes in these medications as dictated in the interval history and assessment and plan. PHYSICAL EXAMINATION: GENERAL: The patient is alert and oriented x3, not in any acute distress. Well developed, well nourished. HEENT: Pupils are round and equally reacting to light. EOMI. No scleral icterus. No conjunctival pallor. Normocephalic, atraumatic. No pharyngeal erythema. No thyromegaly. CARDIOVASCULAR: S1 and S2 present. No murmurs, rubs, or gallops. PULMONARY: Chest is clear to auscultation, no wheezing or crackles. ABDOMEN: Soft, nontender, nondistended, normoactive bowel sounds. No palpable organomegaly. MUSCULOSKELETAL: No joint swelling or deformity. EXTREMITIES: No cyanosis, clubbing, or pedal edema. NEUROLOGICAL: Gross neurological examination did not reveal any focal deficits. SKIN: No rashes. Assessment and plan Assessment: Acute hypoxic respiratory failure requiring oxygen at 4 L nasal cannula possibly from COPD patient does have history of tobacco use. Xray shows possible evidence of right middle lobe pneumonia, also pleural effusions bilaterally. Empiric antibiotic coverage started today. Patient is being followed by pulmonary services as well. Mechanical Fall without losing consciousness Acute Right intertrochanteric fracture POD #1 operative repair with nailing Hypertension History of anxiety and depression Current smoker Full Code GI Prophylaxis DVT Prophylaxis as per primary Plan: This is a pleasant 66 years old female who presents with right hip fracture post surgical repair. Discontinue IV fluids, Check BNP D-Dimer reviewed, will start patient on empiric antibiotic coverage, continue bronchodilators Continue oxygen support, wean as tolerated Encourage incentive spirometery Repeat BMP/CBC in AM Will Discharge to [facility] when stable, most likely tuesday Thank you for this consultation The impression and plan of care has been dictated by Tanja Figueroa, Nurse Practitioner as directed. Dr. Priti MD I have performed a history and physical examination and medical decision making of this patient, discussed the same with the dictator, and agree with the dictators assessment and plan as written, documented as a scribe. Based on total visit time, I have performed more than 50% of this visit. Objective - Vital Signs Vital signs: Vital Signs Temp 98.3 F 04/24/22 04:36 Pulse 88 04/24/22 07:41 Resp 16 04/24/22 04:36 BP 104/67 04/24/22 04:36 Pulse Ox 90 L 04/24/22 07:29 FiO2 Intake & Output 04/23/22 04/24/22 04/24/22 18:59 06:59 18:59 Intake Total 1550 1250 Output Total 800 Balance 750 1250 Weight 54.885 kg Intake: IV 1550 300 Sodium Chloride 0.9% 1, 600 000 ml @ 75 mls/hr IV . [id number] [facility] Rx#:[id number] Intake, IV Titration 950 Amount Sodium Chloride 0.9% 1, 900 000 ml @ 75 mls/hr IV . [id number] [facility] Rx#:[id number] ceFAZolin 2 gm In Sodium 50 Chloride 0.9% 50 ml @ 100 mls/hr IVPB Q8H [facility] Rx#: [id number] Output: Urine 700 Uretheral (Prince) 600 Estimated Blood Loss 100 Other: Voiding Method Indwelling Catheter - Labs CBC & Chem 7: 04/23/22 21:43 04/22/22 19:43 Labs: Abnormal Lab Results - Last 24 Hours (Table) 04/23/22 04/23/22 04/23/22 Range/Units 11:17 16:30 21:43 WBC 17.12 H (4.50-10.00) X 10*3/uL MCHC 30.0 L (32.0-37.0) g/dL MPV 8.6 L (9.5-12.2) fL Immature Gran # 0.05 H (0.00-0.04) X 10*3/uL Neutrophils # 15.11 H (1.80-7.70) X 10*3/uL Lymphocytes # 0.74 L (0.90-5.00) X 10*3/uL Monocytes # 1.20 H (0.20-1.00) X 10*3/uL Eosinophils # 0 L (0.04-0.35) X 10*3/uL POC Glucose (mg/dL) 120 H 124 H (70-110) mg/dL 04/24/22 04/24/22 Range/Units 00:20 08:35 WBC (4.50-10.00) X 10*3/uL MCHC (32.0-37.0) g/dL MPV (9.5-12.2) fL Immature Gran # (0.00-0.04) X 10*3/uL Neutrophils # (1.80-7.70) X 10*3/uL Lymphocytes # (0.90-5.00) X 10*3/uL Monocytes # (0.20-1.00) X 10*3/uL Eosinophils # (0.04-0.35) X 10*3/uL POC Glucose (mg/dL) 132 H 144 H (70-110) mg/dL Assessment and Plan Time with Patient: Less than 30
[2022-04-24 17:09] LABS: Glucose,Whole Blood 168 mg/dL (70-110)
[2022-04-24 20:29] LABS: Glucose,Whole Blood 164 mg/dL (70-110)
[2022-04-24] MEDS: FAMOTIDINE 20 MG TAB PO SCH (21:29)
[2022-04-24] MEDS: SENNOSIDES-DOCUSATE SODIUM 1 EACH TAB PO SCH (21:30)
[2022-04-25 07:11] LABS: Glucose,Whole Blood 149 mg/dL (70-110)
[2022-04-25] MEDS: SYMBICORT 160-4.5 MCG INHALER INHALATION SCH ×2 (07:24→19:12)
[2022-04-25] MEDS: IPRATROPIUM-ALBUTEROL 3 ML NEB INHALATION SCH ×4 (07:24→19:12)
[2022-04-25] MEDS: INSULIN ASPART (NovoLOG) 100 UNIT/ML VIAL SQ SCH ×4 (07:57→21:26)
[2022-04-25] MEDS: ASPIRIN 81 MG PO SCH ×2 (08:05→21:24)
[2022-04-25] MEDS: HYDROcodone/APAP 5-325MG 1 EACH TAB PO PRN ×3 (08:05→22:48)
[2022-04-25] MEDS: METOPROLOL SUCCINATE (ER) 50 MG TAB.ER.24H PO SCH (08:06)
[2022-04-25] MEDS: FAMOTIDINE 20 MG TAB PO SCH ×2 (08:06→21:25)
[2022-04-25] MEDS: HEPARIN SODIUM,PORCINE/PF 5,000 UNIT/0.5 ML SYRINGE SQ SCH ×2 (08:07→21:24)
[2022-04-25] MEDS: methylPREDNISolone SOD SUCCI 40 MG/ML 1 ML VIAL IV SCH (08:07)
[2022-04-25] MEDS: ESCITALOPRAM 20 MG TAB PO SCH (08:08)
[2022-04-25 09:46] LABS: African American GFR (CKD) 81.9 (60.0-200.0); Anion Gap 6.8 mmol/L (10.00-18.00); BUN/Creat Ratio 35.36 Ratio (12.00-20.00); Blood Urea Nitrogen 30.3 mg/dL (9.0-27.0); Calcium 8.6 mg/dL (8.7-10.3); Carbon Dioxide 28.3 mmol/L (20.0-27.5); Non-African American GFR(CKD) 70.7 (60.0-200.0); Potassium 4.9 mmol/L (3.5-5.5)
[2022-04-25 10:05] LABS: Basophils # (A) 0.02 X 10*3/uL (0.00-0.10); Basophils % (A) 0.1 %; Eosinophils # (A) 0.01 X 10*3/uL (0.04-0.35); Eosinophils % (A) 0.1 %; HCT 39.9 % (37.2-46.3); HGB 12.2 g/dL (12.0-15.0); Immature Grans, Automated 0.2 %; Lymphocytes # (A) 0.46 X 10*3/uL (0.90-5.00); Lymphocytes % (A) 2.7 %; MCH 28.8 pg (27.0-32.0); MCHC 30.6 g/dL (32.0-37.0); MCV 94.1 fL (80.0-97.0); Mean Platelet Volume 9.6 fL (9.5-12.2); Monocytes # (A) 0.55 X 10*3/uL (0.20-1.00); Monocytes % (A) 3.3 %; NRBC Per 100 WBC 0 /100 WBCS (0.0-0.0); Neutrophils # (A) 15.77 X 10*3/uL (1.80-7.70); Neutrophils % (A) 93.6 %; Platelet Count 143 X 10*3/uL (140-440); RBC 4.24 X 10*6/uL (4.10-5.20); RDW 12.9 % (11.5-14.5); WBC 16.85 X 10*3/uL (4.50-10.00)
[2022-04-25] MEDS ORDERED: FUROSEMIDE 10 MG/ML 2 ML VIAL IV ONE (10:18)
--- NOTE | 2022-04-25 10:18 | P.PN ---
Subjective Progress Note Date: 04/25/22 This is a very pleasant 66-year-old female that were asked to see for preoperative clearance. The patient apparently tripped on some power cords, and fractured her right hip. The patient is currently on 5 L of oxygen. Her saturations are 92%. She's not short of breath. She has no known history of any lung disease. She is also receiving saline at 75 mL an hour. She does have a history of hypertension, anxiety/depression, and diverticular disease, with a previous bowel resection. She did smoke for about 20 years, at one half pack a day. We did recommend incentive spirometry, and updrafts. Clinically, she looks well. In my opinion, orthopedics could proceed with surgery. White count 16.5, hemoglobin 14.3, hematocrit 5.4, and platelet count 225,000. PT/INR/PTT are all normal. Sodium 136, with a normal potassium, chloride, CO2, anion gap, BUN, and creatinine. The rest of the comprehensive metabolic profile is normal. Chest x-ray shows no acute disease. The patient is seen today 04/24/2022 in follow-up on the regular medical floor. She is maintaining O2 saturations in the low 90s on 5 L/m per nasal cannula. She's been afebrile. Hemodynamically stable. She did undergo a fixation of the right internal trochanteric hip fracture with short intramedullary hip screw placement yesterday 04/23/2022. Her pain is been fairly well controlled. The plan is to have her up out of bed today. She is encouraged regarding the use of the incentive spirometer and cough and deep breathing. Blood glucose 144. She is continued on Symbicort, DuoNeb inhalations, IV Solu-Medrol. Heparin for DVT prophylaxis. The patient is seen today 04/25/2022 in follow-up on the regular medical floor. She is resting comfortably in bed. Awake and alert in no acute distress. Postoperative day #2. Right hip dressing dry and intact. She is maintaining O2 saturations in the upper 90s on 5 L/m per nasal cannula. Chest x-ray reveals cardiomegaly with bilateral pleural effusions and possible right middle lobe pneumonia versus technique. White count 16.8. Humulin 12.2. Platelets 143. Sodium 1:30. Potassium 4.9. BUN 30. Creatinine 0.9. Glucose 154. ProBNP 1740. She remains on Symbicort, DuoNeb inhalations, IV Solu-Medrol. Heparin for DVT prophylaxis. Objective - Vital Signs Vital signs: Vital Signs Temp 98.1 F 04/25/22 04:51 Pulse 82 04/25/22 07:33 Resp 16 04/25/22 07:27 BP 118/76 04/25/22 04:51 Pulse Ox 98 04/25/22 07:25 FiO2 Intake & Output 04/24/22 04/25/22 04/25/22 18:59 06:59 18:59 Intake Total 960 1040 Output Total 520 Balance 440 1040 Intake: IV 600 Sodium Chloride 0.9% 1, 600 000 ml @ 75 mls/hr IV . [id number] [facility] Rx#:[id number] Intake, IV Titration 450 Amount Sodium Chloride 0.9% 1, 450 000 ml @ 75 mls/hr IV . [id number] [facility] Rx#:[id number] Oral 360 590 Output: Urine 520 Other: Voiding Method Indwelling Catheter Indwelling Catheter Indwelling Catheter # Voids 1 - Exam GENERAL EXAM: Alert, pleasant 66-year-old female, resting comfortably in bed, on 5 L nasal cannula. HEAD: Normocephalic. EYES: Normal reaction of pupils, equal size. NOSE: Clear with pink turbinates. THROAT: No erythema or exudates. NECK: No masses, no JVD. CHEST: No chest wall deformity. LUNGS: Equal air entry with no crackles, wheeze, rhonchi or dullness. CVS: S1 and S2 normal with no audible murmur, regular rhythm. ABDOMEN: No hepatosplenomegaly, normal bowel sounds, no guarding or rigidity. SPINE: No scoliosis or deformity SKIN: No rashes CENTRAL NERVOUS SYSTEM: No focal deficits, tone is normal in all 4 extremities. EXTREMITIES: Seem to the right hip clean and dry. There is no peripheral edema. No clubbing, no cyanosis. Peripheral pulses are intact. - Labs CBC & Chem 7: 04/25/22 04:59 04/25/22 04:59 Labs: Abnormal Lab Results - Last 24 Hours (Table) 04/22/22 04/24/22 04/24/22 Range/Units 19:43 11:15 13:05 WBC (4.50-10.00) X 10*3/uL MCHC (32.0-37.0) g/dL Neutrophils # (1.80-7.70) X 10*3/uL Lymphocytes # (0.90-5.00) X 10*3/uL Eosinophils # (0.04-0.35) X 10*3/uL D-Dimer 1.08 H (<0.60) mg/L FEU Carbon Dioxide (20.0-27.5) mmol/L Anion Gap (10.00-18.00) mmol/L BUN (9.0-27.0) mg/dL BUN/Creatinine Ratio (12.00-20.00) Ratio Glucose (70-110) mg/dL POC Glucose (mg/dL) 137 H (70-110) mg/dL Calcium (8.7-10.3) mg/dL Vitamin D 25-Hydroxy 15.0 L (30.0-100.0) ng/mL 04/24/22 04/24/22 04/25/22 Range/Units 17:07 20:28 04:59 WBC 16.85 H (4.50-10.00) X 10*3/uL MCHC 30.6 L (32.0-37.0) g/dL Neutrophils # 15.77 H (1.80-7.70) X 10*3/uL Lymphocytes # 0.46 L (0.90-5.00) X 10*3/uL Eosinophils # 0.01 L (0.04-0.35) X 10*3/uL D-Dimer (<0.60) mg/L FEU Carbon Dioxide (20.0-27.5) mmol/L Anion Gap (10.00-18.00) mmol/L BUN (9.0-27.0) mg/dL BUN/Creatinine Ratio (12.00-20.00) Ratio Glucose (70-110) mg/dL POC Glucose (mg/dL) 168 H 164 H (70-110) mg/dL Calcium (8.7-10.3) mg/dL Vitamin D 25-Hydroxy (30.0-100.0) ng/mL 04/25/22 04/25/22 Range/Units 04:59 07:08 WBC (4.50-10.00) X 10*3/uL MCHC (32.0-37.0) g/dL Neutrophils # (1.80-7.70) X 10*3/uL Lymphocytes # (0.90-5.00) X 10*3/uL Eosinophils # (0.04-0.35) X 10*3/uL D-Dimer (<0.60) mg/L FEU Carbon Dioxide 28.3 H (20.0-27.5) mmol/L Anion Gap 6.80 L (10.00-18.00) mmol/L BUN 30.3 H (9.0-27.0) mg/dL BUN/Creatinine Ratio 35.36 H (12.00-20.00) Ratio Glucose 154 H (70-110) mg/dL POC Glucose (mg/dL) 149 H (70-110) mg/dL Calcium 8.6 L (8.7-10.3) mg/dL Vitamin D 25-Hydroxy (30.0-100.0) ng/mL Assessment and Plan Assessment: Status post fall, with right hip fracture. Status post operative fixation of the right intertrochanteric hip fracture with short intramedullary hip screw basement on 04/23/2022. Postoperative day #2. Low saturations, which may relate to some intrinsic pulmonary disease, such as COPD, from previous tobacco use. Evidence of mild fluid volume overload postoperatively. History of hypertension. Diverticular disease, status post bowel resection. History of anxiety/depression. Plan: The patient was seen and evaluated Chest x-ray, labs and medications reviewed We'll give Lasix 20 mg IVP 1 Titrate the FiO2 as tolerated Continue incentive spirometer every hour while awake Increase her activity as tolerated Continue bronchodilators We will continue to follow I have personally seen and examined the patient, performed the documentation and the assessment and plan as written. Number of minutes spent on the visit: 10.
--- NOTE | 2022-04-25 10:39 | P.PN ---
Subjective Progress Note Date: 04/25/22 Principal diagnosis: Status post right hip gamma nail This is a 66 year-old female post right hip gamma nail. This is post-op day 2. The patient was evaluated at the bedside today. The patient denies nausea, vomiting, abdominal pain, shortness of breath, and chest pain this morning. She states her pain is controlled at this time. The patient has been up to the chair yesterday but is moving slowly. Objective - Vital Signs Vital signs: Vital Signs Temp 98.1 F 04/25/22 04:51 Pulse 82 04/25/22 07:33 Resp 16 04/25/22 07:27 BP 118/76 04/25/22 04:51 Pulse Ox 98 04/25/22 07:25 FiO2 Intake & Output 04/24/22 04/25/22 04/25/22 18:59 06:59 18:59 Intake Total 960 1040 Output Total 520 Balance 440 1040 Intake: IV 600 Sodium Chloride 0.9% 1, 600 000 ml @ 75 mls/hr IV . [id number] [facility] Rx#:[id number] Intake, IV Titration 450 Amount Sodium Chloride 0.9% 1, 450 000 ml @ 75 mls/hr IV . [id number] [facility] Rx#:[id number] Oral 360 590 Output: Urine 520 Other: Voiding Method Indwelling Catheter Indwelling Catheter Indwelling Catheter # Voids 1 - Exam The patient does not appear in acute distress. Alert and orientated x3. Dressing is clean dry and intact. No erythema or active drainage. Calf is soft and nontender. Good foot and ankle motion without difficulty. Sensation and circulatory status is intact. - Labs CBC & Chem 7: 04/25/22 04:59 04/25/22 04:59 Labs: Abnormal Lab Results - Last 24 Hours (Table) 04/22/22 04/24/22 04/24/22 Range/Units 19:43 11:15 13:05 WBC (4.50-10.00) X 10*3/uL MCHC (32.0-37.0) g/dL Neutrophils # (1.80-7.70) X 10*3/uL Lymphocytes # (0.90-5.00) X 10*3/uL Eosinophils # (0.04-0.35) X 10*3/uL D-Dimer 1.08 H (<0.60) mg/L FEU Carbon Dioxide (20.0-27.5) mmol/L Anion Gap (10.00-18.00) mmol/L BUN (9.0-27.0) mg/dL BUN/Creatinine Ratio (12.00-20.00) Ratio Glucose (70-110) mg/dL POC Glucose (mg/dL) 137 H (70-110) mg/dL Calcium (8.7-10.3) mg/dL Vitamin D 25-Hydroxy 15.0 L (30.0-100.0) ng/mL 04/24/22 04/24/22 04/25/22 Range/Units 17:07 20:28 04:59 WBC 16.85 H (4.50-10.00) X 10*3/uL MCHC 30.6 L (32.0-37.0) g/dL Neutrophils # 15.77 H (1.80-7.70) X 10*3/uL Lymphocytes # 0.46 L (0.90-5.00) X 10*3/uL Eosinophils # 0.01 L (0.04-0.35) X 10*3/uL D-Dimer (<0.60) mg/L FEU Carbon Dioxide (20.0-27.5) mmol/L Anion Gap (10.00-18.00) mmol/L BUN (9.0-27.0) mg/dL BUN/Creatinine Ratio (12.00-20.00) Ratio Glucose (70-110) mg/dL POC Glucose (mg/dL) 168 H 164 H (70-110) mg/dL Calcium (8.7-10.3) mg/dL Vitamin D 25-Hydroxy (30.0-100.0) ng/mL 04/25/22 04/25/22 Range/Units 04:59 07:08 WBC (4.50-10.00) X 10*3/uL MCHC (32.0-37.0) g/dL Neutrophils # (1.80-7.70) X 10*3/uL Lymphocytes # (0.90-5.00) X 10*3/uL Eosinophils # (0.04-0.35) X 10*3/uL D-Dimer (<0.60) mg/L FEU Carbon Dioxide 28.3 H (20.0-27.5) mmol/L Anion Gap 6.80 L (10.00-18.00) mmol/L BUN 30.3 H (9.0-27.0) mg/dL BUN/Creatinine Ratio 35.36 H (12.00-20.00) Ratio Glucose 154 H (70-110) mg/dL POC Glucose (mg/dL) 149 H (70-110) mg/dL Calcium 8.6 L (8.7-10.3) mg/dL Vitamin D 25-Hydroxy (30.0-100.0) ng/mL Assessment and Plan (1) Status post hip surgery Current Visit: Yes Status: Acute Code(s): Z98.890 - OTHER SPECIFIED POSTPROCEDURAL STATES SNOMED Code(s): 544946733 (2) Fall Current Visit: Yes Status: Acute Code(s): W19.XXXA - UNSPECIFIED FALL, INITIAL ENCOUNTER SNOMED Code(s): 0295031 (3) Hip fracture Current Visit: Yes Status: Acute Code(s): S72.009A - FRACTURE OF UNSP PART OF NECK OF UNSP FEMUR, INIT SNOMED Code(s): 038961549 Plan: 1. Continue pain control 2. Anticoagulation with Aspirin 81 mg BID 3. Continue physical therapy and ambulation, weightbearing as tolerated with walker 4. Anticipate discharge to skilled rehab in 1-2 days.
[2022-04-25 11:05] LABS: Glucose,Whole Blood 161 mg/dL (70-110)
--- NOTE | 2022-04-25 17:08 | P.PN ---
Subjective Progress Note Date: 04/25/22 This is a 66-year-old female who presents with mechanical fall resulting in right intratrochanteric fracture. She is postoperative day #1 operative fixation of right intertrochanteric hip fracture with short intramedullary hip screw with Dr. Dorsey. Patient also is a current smoker smokes about 7 to 10 cigarettes per day. Denies history of COPD, not using any inhalers at home. She is being followed by pulmonary this hospital stay. Patient continues on nasal cannula 4 L post operatively, denies use of home oxygen. D-Dimer has been checked at 1.08. Chest xray follow up completed showing possible right middle lobe pneumonia, also bilateral pleural effusions. Patient continues on bronchodilators will add empiric antibiotic coverage and also check BNP. Further recommendations to follow. 04/25/2022 Patient evaluated today sitting up in the chair. She overall is doing much better. She has been ambulating to the bedside commode, working with physical therapy. Patient received a dose of IV lasix this morning, proBNP was found to be 1740 yesterday. White count 16.85. Urinalysis and culture are currently pending for collection to rule out UA, patient does deny dysuria. Continues with indwelling catheter. Patient is being followed by pulmonary services as well, continues on bronchodilators, also on 5L nasal cannula. Reaching about 1000 on IS. Reinforced using IS. Plan for discharge possibly tuesday, patient may need rehab on discharge. Continue to encourage ambulation. Review of Systems Constitutional: Denied any fatigue denied any fever. Cardio vascular: denied any chest pain, palpitations Gastrointestinal: denied any nausea, vomiting, diarrhea, passing gas, had BM yesterday Pulmonary: Reports mild shortness of breath with exertion, denies cough Neurologic denied any new focal deficits All inpatient medications were reviewed and appropriate changes in these medications as dictated in the interval history and assessment and plan. PHYSICAL EXAMINATION: GENERAL: The patient is alert and oriented x3, not in any acute distress. Well developed, well nourished. HEENT: Pupils are round and equally reacting to light. EOMI. No scleral icterus. No conjunctival pallor. Normocephalic, atraumatic. No pharyngeal erythema. No thyromegaly. CARDIOVASCULAR: S1 and S2 present. No murmurs, rubs, or gallops. PULMONARY: Chest is clear to auscultation, no wheezing or crackles. ABDOMEN: Soft, nontender, nondistended, normoactive bowel sounds. No palpable organomegaly. MUSCULOSKELETAL: No joint swelling or deformity. EXTREMITIES: No cyanosis, clubbing, or pedal edema. NEUROLOGICAL: Gross neurological examination did not reveal any focal deficits. SKIN: No rashes. Assessment and plan Assessment: Acute hypoxic respiratory failure requiring oxygen at 4-5 L nasal cannula possi paulo from COPD patient does have history of tobacco use. Xray shows possible evidence of right middle lobe pneumonia, also pleural effusions bilaterally. ProBNP mildly elevated, she did receive a dose of IV lasix today. Leukocytosis possible reactive, will check urinalysis for infection. Mechanical Fall without losing consciousness Acute Right intertrochanteric fracture POD #2 operative repair with nailing Hypertension History of anxiety and depression Current smoker educated on cessation Full Code GI Prophylaxis DVT Prophylaxis as per primary Plan: This is a pleasant 66 years old female who presents with right hip fracture post surgical repair. Continue oxygen support, bronchodilators, wean oxygen as tolerated Encourage incentive spirometery Check urinalysis Echocardiogram ordered Will Discharge to [facility] when stable, most likely tuesday Thank you for this consultation The impression and plan of care has been dictated by Tanja Figueroa, Nurse Practitioner as directed. Dr. Priti MD I have performed a history and physical examination and medical decision making of this patient, discussed the same with the dictator, and agree with the dictators assessment and plan as written, documented as a scribe. Based on total visit time, I have performed more than 50% of this visit. Objective - Vital Signs Vital signs: Vital Signs Temp 98.1 F 04/25/22 11:30 Pulse 90 04/25/22 15:31 Resp 18 04/25/22 11:30 BP 106/66 04/25/22 11:30 Pulse Ox 95 04/25/22 15:20 FiO2 Intake & Output 04/24/22 04/25/22 04/25/22 18:59 06:59 18:59 Intake Total 960 1040 Output Total 520 3 Balance 440 1040 -3 Intake: IV 600 Sodium Chloride 0.9% 1, 600 000 ml @ 75 mls/hr IV . [id number] [facility] Rx#:[id number] Intake, IV Titration 450 Amount Sodium Chloride 0.9% 1, 450 000 ml @ 75 mls/hr IV . [id number] [facility] Rx#:[id number] Oral 360 590 Output: Urine 520 3 Other: Voiding Method Indwelling Catheter Indwelling Catheter Indwelling Catheter # Voids 1 - Labs CBC & Chem 7: 04/25/22 04:59 04/25/22 04:59 Labs: Abnormal Lab Results - Last 24 Hours (Table) 04/22/22 04/24/22 04/24/22 Range/Units 19:43 17:07 20:28 WBC (4.50-10.00) X 10*3/uL MCHC (32.0-37.0) g/dL Neutrophils # (1.80-7.70) X 10*3/uL Lymphocytes # (0.90-5.00) X 10*3/uL Eosinophils # (0.04-0.35) X 10*3/uL Carbon Dioxide (20.0-27.5) mmol/L Anion Gap (10.00-18.00) mmol/L BUN (9.0-27.0) mg/dL BUN/Creatinine Ratio (12.00-20.00) Ratio Glucose (70-110) mg/dL POC Glucose (mg/dL) 168 H 164 H (70-110) mg/dL Calcium (8.7-10.3) mg/dL Vitamin D 25-Hydroxy 15.0 L (30.0-100.0) ng/mL 04/25/22 04/25/22 04/25/22 Range/Units 04:59 04:59 07:08 WBC 16.85 H (4.50-10.00) X 10*3/uL MCHC 30.6 L (32.0-37.0) g/dL Neutrophils # 15.77 H (1.80-7.70) X 10*3/uL Lymphocytes # 0.46 L (0.90-5.00) X 10*3/uL Eosinophils # 0.01 L (0.04-0.35) X 10*3/uL Carbon Dioxide 28.3 H (20.0-27.5) mmol/L Anion Gap 6.80 L (10.00-18.00) mmol/L BUN 30.3 H (9.0-27.0) mg/dL BUN/Creatinine Ratio 35.36 H (12.00-20.00) Ratio Glucose 154 H (70-110) mg/dL POC Glucose (mg/dL) 149 H (70-110) mg/dL Calcium 8.6 L (8.7-10.3) mg/dL Vitamin D 25-Hydroxy (30.0-100.0) ng/mL 04/25/22 Range/Units 11:03 WBC (4.50-10.00) X 10*3/uL MCHC (32.0-37.0) g/dL Neutrophils # (1.80-7.70) X 10*3/uL Lymphocytes # (0.90-5.00) X 10*3/uL Eosinophils # (0.04-0.35) X 10*3/uL Carbon Dioxide (20.0-27.5) mmol/L Anion Gap (10.00-18.00) mmol/L BUN (9.0-27.0) mg/dL BUN/Creatinine Ratio (12.00-20.00) Ratio Glucose (70-110) mg/dL POC Glucose (mg/dL) 161 H (70-110) mg/dL Calcium (8.7-10.3) mg/dL Vitamin D 25-Hydroxy (30.0-100.0) ng/mL Assessment and Plan Time with Patient: Less than 30
[2022-04-25 17:17] LABS: Glucose,Whole Blood 164 mg/dL (70-110)
[2022-04-25 19:29] LABS: Basophils % (A) 0 %; Eosinophils # (A) 0.2 k/uL (0-0.7); Eosinophils % (A) 1 %; HCT 39.5 % (34.0-46.0); HGB 12.2 gm/dL (11.4-16.0); Hypochromasia Slight; Lymphocytes # (A) 0.4 k/uL (1.0-4.8); Lymphocytes % (A) 2 %; MCH 28.5 pg (25.0-35.0); MCHC 30.9 g/dL (31.0-37.0); MCV 92.3 fL (80.0-100.0); Mean Platelet Volume 6.8; Monocytes # (A) 0.6 k/uL (0-1.0); Monocytes % (A) 4 %; Neutrophils # (A) 15.9 k/uL (1.3-7.7); Neutrophils % (A) 92 %; Platelet Count 180 k/uL (150-450); RBC 4.28 m/uL (3.80-5.40); WBC 17.2 k/uL (3.8-10.6)
[2022-04-25 19:58] LABS: Glucose,Whole Blood 148 mg/dL (70-110)
[2022-04-25 21:07] LABS: Appearance,Urine Clear (Clear); Bacteria,Urine Rare /hpf; Bilirubin,Urine Negative (Negative); Blood,Urine Negative (Negative); Color,Urine Light Yellow; Glucose,Urine (UA) Negative (Negative); Hyaline Casts,Urine 16 /lpf (0-2); Ketones,Urine Negative (Negative); Leukocyte Esterase,Urine Large (Negative); Mucus,Urine Rare /hpf; Nitrite,Urine Negative (Negative); PH, Urine 5.5 (5.0-8.0); Protein,Urine Negative (Negative); RBC,Urine 2 /hpf (0-5); Specific Gravity,Urine 1.016 (1.001-1.035); Squamous Epithelial Cell,Urine 5 /hpf (0-4); Urobilinogen,Urine <2.0 mg/dL (<2.0); WBC,Urine 8 /hpf (0-5)
[2022-04-25] MEDS: SENNOSIDES-DOCUSATE SODIUM 1 EACH TAB PO SCH (21:24)
[2022-04-26] MEDS: ALPRAZolam 0.25 MG TAB PO PRN ×2 (05:39→20:13)
[2022-04-26 07:05] LABS: Glucose,Whole Blood 116 mg/dL (70-110)
[2022-04-26] MEDS: SYMBICORT 160-4.5 MCG INHALER INHALATION SCH ×2 (08:51→20:40)
[2022-04-26] MEDS: IPRATROPIUM-ALBUTEROL 3 ML NEB INHALATION SCH ×4 (08:51→20:39)
[2022-04-26] MEDS: INSULIN ASPART (NovoLOG) 100 UNIT/ML VIAL SQ SCH ×4 (09:38→21:29)
[2022-04-26] MEDS: HEPARIN SODIUM,PORCINE/PF 5,000 UNIT/0.5 ML SYRINGE SQ SCH ×2 (09:42→20:13)
[2022-04-26] MEDS: predniSONE 20 MG TAB PO SCH (09:42)
[2022-04-26] MEDS: HYDROcodone/APAP 5-325MG 1 EACH TAB PO PRN ×2 (09:43→20:14)
[2022-04-26] MEDS: METOPROLOL SUCCINATE (ER) 50 MG TAB.ER.24H PO SCH (09:44)
[2022-04-26] MEDS: ASPIRIN 81 MG PO SCH ×2 (09:47→20:13)
[2022-04-26] MEDS: FAMOTIDINE 20 MG TAB PO SCH ×2 (09:47→20:12)
[2022-04-26] MEDS: ESCITALOPRAM 20 MG TAB PO SCH (09:49)
[2022-04-26] MEDS: NICOTINE 7MG/24HR PATCH TRANSDERM SCH (09:49)
[2022-04-26 11:15] LABS: Glucose,Whole Blood 113 mg/dL (70-110)
--- NOTE | 2022-04-26 12:36 | P.PN ---
Subjective Progress Note Date: 04/26/22 This is a very pleasant 66-year-old female that were asked to see for preoperative clearance. The patient apparently tripped on some power cords, and fractured her right hip. The patient is currently on 5 L of oxygen. Her saturations are 92%. She's not short of breath. She has no known history of any lung disease. She is also receiving saline at 75 mL an hour. She does have a history of hypertension, anxiety/depression, and diverticular disease, with a previous bowel resection. She did smoke for about 20 years, at one half pack a day. We did recommend incentive spirometry, and updrafts. Clinically, she looks well. In my opinion, orthopedics could proceed with surgery. White count 16.5, hemoglobin 14.3, hematocrit 5.4, and platelet count 225,000. PT/INR/PTT are all normal. Sodium 136, with a normal potassium, chloride, CO2, anion gap, BUN, and creatinine. The rest of the comprehensive metabolic profile is normal. Chest x-ray shows no acute disease. The patient is seen today 04/24/2022 in follow-up on the regular medical floor. She is maintaining O2 saturations in the low 90s on 5 L/m per nasal cannula. She's been afebrile. Hemodynamically stable. She did undergo a fixation of the right internal trochanteric hip fracture with short intramedullary hip screw placement yesterday 04/23/2022. Her pain is been fairly well controlled. The plan is to have her up out of bed today. She is encouraged regarding the use of the incentive spirometer and cough and deep breathing. Blood glucose 144. She is continued on Symbicort, DuoNeb inhalations, IV Solu-Medrol. Heparin for DVT prophylaxis. The patient is seen today 04/25/2022 in follow-up on the regular medical floor. She is resting comfortably in bed. Awake and alert in no acute distress. Postoperative day #2. Right hip dressing dry and intact. She is maintaining O2 saturations in the upper 90s on 5 L/m per nasal cannula. Chest x-ray reveals cardiomegaly with bilateral pleural effusions and possible right middle lobe pneumonia versus technique. White count 16.8. Humulin 12.2. Platelets 143. Sodium 1:30. Potassium 4.9. BUN 30. Creatinine 0.9. Glucose 154. ProBNP 1740. She remains on Symbicort, DuoNeb inhalations, IV Solu-Medrol. Heparin for DVT prophylaxis. The patient is seen today 04/26/2020 of the regular medical floor. She is currently resting comfortably. Awake and alert in no acute distress. Her daughter is at the bedside. Her pain has been well controlled. She's been up with assistance with a walker. Blood glucose 113. She is less short of breath today. Feeling also to her baseline. She is maintaining O2 saturations in the high 90s on 5 L nasal cannula. She's been afebrile. Hemodynamically stable. We did trial her on 3 L nasal cannula and her O2 saturation was 87%. She is continued on Symbicort, DuoNeb inhalations, prednisone taper. NicoDerm patch place. Heparin for DVT prophylaxis. Objective - Vital Signs Vital signs: Vital Signs Temp 98.4 F 04/26/22 11:34 Pulse 94 04/26/22 12:25 Resp 15 04/26/22 11:34 BP 129/71 04/26/22 11:34 Pulse Ox 95 04/26/22 12:17 FiO2 Intake & Output 04/25/22 04/26/22 04/26/22 18:59 06:59 18:59 Intake Total 590 Output Total 3 3 Balance -3 590 -3 Intake: Oral 590 Output: Urine 3 1 Stool 2 Other: Voiding Method Indwelling Catheter Indwelling Catheter # Voids 1 3 # Bowel Movements 0 - Exam GENERAL EXAM: Alert, pleasant 66-year-old female, resting comfortably in bed, on 5 L nasal cannula. HEAD: Normocephalic. EYES: Normal reaction of pupils, equal size. NOSE: Clear with pink turbinates. THROAT: No erythema or exudates. NECK: No masses, no JVD. CHEST: No chest wall deformity. LUNGS: Equal air entry with bilateral end expiratory wheeze, diminished CVS: S1 and S2 normal with no audible murmur, regular rhythm. ABDOMEN: No hepatosplenomegaly, normal bowel sounds, no guarding or rigidity. SPINE: No scoliosis or deformity SKIN: No rashes CENTRAL NERVOUS SYSTEM: No focal deficits, tone is normal in all 4 extremities. EXTREMITIES: Seem to the right hip clean and dry. There is no peripheral edema. No clubbing, no cyanosis. Peripheral pulses are intact. - Labs CBC & Chem 7: 04/25/22 19:07 04/25/22 04:59 Labs: Abnormal Lab Results - Last 24 Hours (Table) 04/25/22 04/25/22 04/25/22 Range/Units 17:16 19:07 19:57 WBC 17.2 H (3.8-10.6) k/uL MCHC 30.9 L (31.0-37.0) g/dL Neutrophils # 15.9 H (1.3-7.7) k/uL Lymphocytes # 0.4 L (1.0-4.8) k/uL POC Glucose (mg/dL) 164 H 148 H (70-110) mg/dL Ur Leukocyte Esterase (Negative) Urine WBC (0-5) /hpf Ur Squamous Epith Cells (0-4) /hpf Urine Bacteria (None) /hpf Hyaline Casts (0-2) /lpf Urine Mucus (None) /hpf 04/25/22 04/26/22 04/26/22 Range/Units 20:03 07:04 11:13 WBC (3.8-10.6) k/uL MCHC (31.0-37.0) g/dL Neutrophils # (1.3-7.7) k/uL Lymphocytes # (1.0-4.8) k/uL POC Glucose (mg/dL) 116 H 113 H (70-110) mg/dL Ur Leukocyte Esterase Large H (Negative) Urine WBC 8 H (0-5) /hpf Ur Squamous Epith Cells 5 H (0-4) /hpf Urine Bacteria Rare H (None) /hpf Hyaline Casts 16 H (0-2) /lpf Urine Mucus Rare H (None) /hpf Assessment and Plan Assessment: Status post fall, with right hip fracture. Status post operative fixation of the right intertrochanteric hip fracture with short intramedullary hip screw basement on 04/23/2022. Postoperative day #3. Low saturations, which may relate to some intrinsic pulmonary disease, such as COPD, from previous tobacco use. Evidence of mild fluid volume overload postoperatively. Chronic and ongoing tobacco dependence, NicoDerm patch in place History of hypertension. Diverticular disease, status post bowel resection. History of anxiety/depression. Plan: The patient was seen and evaluated Improving but not quite back to her baseline as far as her breathing is concerned Continue incentive spirometer every hour while awake Titrate the FiO2 as tolerated Continue bronchodilators Increase her activity as tolerated With benefit from a PFT in the outpatient setting for suspected COPD We will continue to follow I have personally seen and examined the patient, performed the documentation and the assessment and plan as written. Number of minutes spent on the visit: 10. I have personally seen and examined the patient and reviewed the documentation. I performed a joint evaluation with the nurse practitioner in this evaluation was done more than 20 minutes. I fully agree with the documentation above and the plan of care. Overall is stable. I wean the FiO2 down to 3 L. The patient remains on Symbicort and DuoNeb nebulized consulted clock. Surgical wound site over the right hip area second and intact and the patient is currently completing a prednisone burst taper starting with 40 mg. She will likely need home oxygen and nebulizer. She is looking into discharged for rehab. Is postop day #3. Pain is under good control for now.
--- NOTE | 2022-04-26 13:35 | P.PN ---
Subjective Progress Note Date: 04/26/22 This patient is a 66-year-old female who is status-post operative fixation of right intertrochanteric hip fracture with short intramedullary hip screw on 04/23/22. Today is post-operative day #3. The patient was examined bedside. She states the pain in her right hip is well controlled at this time. She has been ambulating slowly with a walker. She has no new complaints or concerns today. Vital signs stable. Objective - Vital Signs Vital signs: Vital Signs Temp 98.4 F 04/26/22 11:34 Pulse 95 04/26/22 12:35 Resp 15 04/26/22 11:34 BP 129/71 04/26/22 11:34 Pulse Ox 95 04/26/22 12:17 FiO2 Intake & Output 04/25/22 04/26/22 04/26/22 18:59 06:59 18:59 Intake Total 590 Output Total 3 3 Balance -3 590 -3 Intake: Oral 590 Output: Urine 3 1 Stool 2 Other: Voiding Method Indwelling Catheter Indwelling Catheter # Voids 1 3 # Bowel Movements 0 - Exam On examination, patient is sitting up in bed in no apparent distress. She is alert and oriented 3. On inspection of her right hip, there is clean, dry, intact Opsite surgical dressings in place. No bleeding or drainage through the dressings. There is mild swelling of the thigh, the thigh soft and compressible. Motor and sensory function is intact of the right lower extremity. Dorsalis pedis pulses easily palpable, right lower extremity warm and well perfused. Calf is nontender. - Labs CBC & Chem 7: 04/25/22 19:07 04/25/22 04:59 Labs: Abnormal Lab Results - Last 24 Hours (Table) 04/25/22 04/25/22 04/25/22 Range/Units 17:16 19:07 19:57 WBC 17.2 H (3.8-10.6) k/uL MCHC 30.9 L (31.0-37.0) g/dL Neutrophils # 15.9 H (1.3-7.7) k/uL Lymphocytes # 0.4 L (1.0-4.8) k/uL POC Glucose (mg/dL) 164 H 148 H (70-110) mg/dL Ur Leukocyte Esterase (Negative) Urine WBC (0-5) /hpf Ur Squamous Epith Cells (0-4) /hpf Urine Bacteria (None) /hpf Hyaline Casts (0-2) /lpf Urine Mucus (None) /hpf 04/25/22 04/26/22 04/26/22 Range/Units 20:03 07:04 11:13 WBC (3.8-10.6) k/uL MCHC (31.0-37.0) g/dL Neutrophils # (1.3-7.7) k/uL Lymphocytes # (1.0-4.8) k/uL POC Glucose (mg/dL) 116 H 113 H (70-110) mg/dL Ur Leukocyte Esterase Large H (Negative) Urine WBC 8 H (0-5) /hpf Ur Squamous Epith Cells 5 H (0-4) /hpf Urine Bacteria Rare H (None) /hpf Hyaline Casts 16 H (0-2) /lpf Urine Mucus Rare H (None) /hpf Assessment and Plan Assessment: Status-post operative fixation of right intertrochanteric hip fracture with short intramedullary hip screw on 04/23/22. Post-operative day #3. Plan: - Weight-bear to tolerance on operative extremity with a walker. - Physical therapy for gait and balance training. - Keep operative dressings intact. - Pain management as needed. - Aspirin 81 mg twice a day 4 weeks for DVT prophylaxis. - Internal medicine for neetu-operative medical management. - Anticipate discharge to rehab within the next 1-2 days.
[2022-04-26 17:08] LABS: Glucose,Whole Blood 143 mg/dL (70-110)
--- NOTE | 2022-04-26 17:30 | P.CNNES ---
History of Present Illness Consult date: 04/26/22 Requesting physician: Marsha Juarez Reason for Consult: tremors, weakness History of Present Illness: Patient is a 66-year-old female who came to the hospital on 04/22/2032, after she tripped on a cord, fell and suffered from fracture of the right hip. Patient underwent operative fixation of the right intertrochanteric hip fracture and short intramedullary hip screw on 04/23/2022. Neurology was consulted for tremors and weakness. Patient's daughter was also present, who also provided with a history. Patient's daughter states that patient's head shakes when she concentrates. Her hand shakes, and her mouth opens and closes when she is staring. She makes noises, grunting sounds all the time, also in the sleep. She is unstable at home. She grabs furniture and feels unsteady. Patient's daughter states that patient has history of essential tremors since age 35 with her right hand would shake only when she would write. But now it is getting worse particularly in the last 1 year. Now it occurs most of the time. She is very shaky in the morning. Patient has very strong family history of tremors as her sister also has head tremor and diagnosed with familial tremor. Patient's tremors have gotten worse since after she was started on Prozac. Her medication was switched to Lexapro and her tremors are slightly better. Patient at home does not use any pain or any assistive device. She does not s tumble or falls otherwise. Patient does have history of COPD. Patient has hypertension, denies diabetes. Patient has smoked half pack per day for 50 years. She has COPD, going home with oxygen. Patient's blood test shows normal electrolytes, BU and 23 creatinine 0.65. UA shows large amount of leukocyte Estrace, 8 WBCs. Patient's white cells are elevated 17.2 hemoglobin 12.2 and platelets are 180. Hemoglobin A1c 6.0. Review of Systems Constitutional: Denies chills, Denies fever Eyes: denies blurred vision, denies pain Ears, nose, mouth and throat: Denies headache, Denies sore throat Cardiovascular: Denies chest pain, Denies shortness of breath Respiratory: Denies cough Gastrointestinal: Denies abdominal pain, Denies diarrhea, Denies nausea, Denies vomiting Genitourinary: Denies dysuria, Denies hematuria Musculoskeletal: Reports fractures, Denies neck pain Integumentary: Denies pruritus, Denies rash Neurological: Reports as per HPI Psychiatric: Reports anxiety, Denies depression Endocrine: Denies fatigue, Denies weight change Hematologic/Lymphatic: Denies easy bruising Past Medical History Past Medical History: No Reported History Additional Past Medical History / Comment(s): Diverticulosis, diverticulitis History of Any Multi-Drug Resistant Organisms: None Reported Past Surgical History: Bowel Resection, Section Additional Past Surgical History / Comment(s): Low anterior resection/repair incisional hernia, colonoscopy Past Anesthesia/Blood Transfusion Reactions: No Reported Reaction, Motion Sickness Smoking Status: Current every day smoker - Past Family History Father Family Medical History: No Reported History Additional Family Medical History / Comment(s): healthy Mother Family Medical History: Hypertension Medications and Allergies Home Medications Medication Instructions Recorded Confirmed Type Escitalopram Oxalate [Lexapro] 20 mg PO DAILY 04/22/22 04/22/22 History Metoprolol Succinate [Toprol XL] 50 mg PO DAILY 04/22/22 04/22/22 History Aspirin 81 mg PO BID 30 Days #60 tab 04/26/22 Rx HYDROcodone/APAP 5-325MG [[place] 1 - 2 tab PO Q6HR PRN 7 Days #32 04/26/22 Rx 5-325] tab ALPRAZolam [Xanax] 0.25 mg PO HS PRN #3 tab 04/27/22 Rx Acetaminophen Tab [Tylenol] 650 mg PO Q6HR PRN tab 04/27/22 Rx Budesonide-Formot 160-4.5 Mcg 2 puff INHALATION RT-BID each 04/27/22 Rx [Symbicort 160-4.5 Mcg Inhaler] Cefdinir [Omnicef] 300 mg PO BID #6 cap 04/27/22 Rx Famotidine [Pepcid] 20 mg PO BID tab 04/27/22 Rx Ipratropium-Albuterol Nebulize 3 ml INHALATION RT-QID each 04/27/22 Rx [Duoneb 0.5 mg-3 mg/3 ml Soln] Nicotine 7Mg/24Hr Patch [Habitrol] 1 patch TRANSDERM DAILY patch 04/27/22 Rx Primidone [Mysoline] 25 mg PO TID #90 dose 04/27/22 Rx Sennosides-Docusate Sodium 2 each PO HS tab 04/27/22 Rx [Senokot-S] predniSONE 10 mg PO DAILY #30 tab 04/27/22 Rx Allergies Allergy/AdvReac Type Severity Reaction Status Date / Time latex Allergy Itching, Verified 04/22/22 18:07 RED SKIN Penicillins Allergy Rash/Hives Verified 04/22/22 18:07 mold AdvReac RUNNY Verified 04/22/22 18:07 NOSE,SNEEZING Physical Examination - Vital Signs Vital Signs: Vital Signs Temp Pulse Pulse Resp BP Pulse Ox 04/26/22 16:26 99 04/26/22 16:16 98 04/26/22 12:35 95 04/26/22 12:25 94 04/26/22 12:17 95 04/26/22 11:34 98.4 F 98 15 129/71 87 L 04/26/22 09:02 110 H 04/26/22 08:51 113 H 90 L 04/26/22 08:00 99 16 04/26/22 05:00 97.6 F 99 16 156/81 96 04/25/22 20:00 109 H 16 04/25/22 19:24 95 04/25/22 19:13 97 Intake and Output 04/26/22 04/26/22 04/26/22 06:59 14:59 22:59 Intake Total 590 600 Output Total 3 Balance 590 -3 600 Intake: Oral 590 600 Output: Urine 1 Stool 2 Other: Voiding Method Indwelling Catheter # Voids 3 Patient is an elderly female, in no acute distress. Patient is alert awake oriented to time place and person. Patient knows it is March 2022 and she is in [facility] and name of the current president. She knows her age. Speech and language functions are normal. Patient can name and repeat very well. No aphasia or dysarthria. Attention, concentration and fund of knowledge is adequate. On cranial nerve examination, pupils are equal (left? Barely minimal larger), round and reacting to light, visual hammer are full on confrontation, with no neglect on double simultaneous stimulation. Extraocular muscles are intact with no nystagmus. Face is symmetric, tongue protrudes to the midline. Palatal elevation and sensation normal, hearing and shoulder shrug normal, facial sensation normal. On muscle strength testing, there is no pronator drift and the strength is normal in arms and legs distally and proximally. Deep tendon reflexes are symmetric symmetric, 3 at the biceps, 3 brachioradialis, 3 at the knees, 2 ankles and plantars downgoing bilaterally. Sensory to touch is equal with no neglect on double simultaneous stimulation. Cerebellar function showed no ataxia for [id number] testing, however she does have mild fine tremors. Patient has mild fine tremor of outstretched hands. No dysdiadochokinesia. No ataxia for [id number] testing on either side. Tone and bulk of muscles normal. No tremors at rest. Patient has prominent head tremor. Gait deferred. On general examination, there is no carotid bruit or murmur, S1-S2 audible. Chest is clear on consultation. Abdomen is soft nontender. No organomegaly, bowel sounds present. Peripheral pulses are present. No edema. Results - Laboratory Findings CBC and BMP: 04/25/22 19:07 04/27/22 06:14 Abnormal Lab Findings: Abnormal Labs 04/22/22 04/22/22 04/22/22 19:43 19:43 19:43 WBC 16.5 H MCHC MPV Immature Gran # Neutrophils # 15.0 H Lymphocytes # 0.7 L Monocytes # Eosinophils # D-Dimer Sodium 136 L Carbon Dioxide Anion Gap BUN BUN/Creatinine Ratio Glucose 120 H POC Glucose (mg/dL) Calcium Vitamin D 25-Hydroxy 15.0 L Ur Leukocyte Esterase Urine WBC Ur Squamous Epith Cells Urine Bacteria Hyaline Casts Urine Mucus 04/23/22 04/23/22 04/23/22 11:17 16:30 21:43 WBC 17.12 H MCHC 30.0 L MPV 8.6 L Immature Gran # 0.05 H Neutrophils # 15.11 H Lymphocytes # 0.74 L Monocytes # 1.20 H Eosinophils # 0 L D-Dimer Sodium Carbon Dioxide Anion Gap BUN BUN/Creatinine Ratio Glucose POC Glucose (mg/dL) 120 H 124 H Calcium Vitamin D 25-Hydroxy Ur Leukocyte Esterase Urine WBC Ur Squamous Epith Cells Urine Bacteria Hyaline Casts Urine Mucus 04/24/22 04/24/22 04/24/22 00:20 08:35 11:15 WBC MCHC MPV Immature Gran # Neutrophils # Lymphocytes # Monocytes # Eosinophils # D-Dimer Sodium Carbon Dioxide Anion Gap BUN BUN/Creatinine Ratio Glucose POC Glucose (mg/dL) 132 H 144 H 137 H Calcium Vitamin D 25-Hydroxy Ur Leukocyte Esterase Urine WBC Ur Squamous Epith Cells Urine Bacteria Hyaline Casts Urine Mucus 04/24/22 04/24/22 04/24/22 13:05 17:07 20:28 WBC MCHC MPV Immature Gran # Neutrophils # Lymphocytes # Monocytes # Eosinophils # D-Dimer 1.08 H Sodium Carbon Dioxide Anion Gap BUN BUN/Creatinine Ratio Glucose POC Glucose (mg/dL) 168 H 164 H Calcium Vitamin D 25-Hydroxy Ur Leukocyte Esterase Urine WBC Ur Squamous Epith Cells Urine Bacteria Hyaline Casts Urine Mucus 04/25/22 04/25/22 04/25/22 04:59 04:59 07:08 WBC 16.85 H MCHC 30.6 L MPV Immature Gran # Neutrophils # 15.77 H Lymphocytes # 0.46 L Monocytes # Eosinophils # 0.01 L D-Dimer Sodium Carbon Dioxide 28.3 H Anion Gap 6.80 L BUN 30.3 H BUN/Creatinine Ratio 35.36 H Glucose 154 H POC Glucose (mg/dL) 149 H Calcium 8.6 L Vitamin D 25-Hydroxy Ur Leukocyte Esterase Urine WBC Ur Squamous Epith Cells Urine Bacteria Hyaline Casts Urine Mucus 04/25/22 04/25/22 04/25/22 11:03 17:16 19:07 WBC 17.2 H MCHC 30.9 L MPV Immature Gran # Neutrophils # 15.9 H Lymphocytes # 0.4 L Monocytes # Eosinophils # D-Dimer Sodium Carbon Dioxide Anion Gap BUN BUN/Creatinine Ratio Glucose POC Glucose (mg/dL) 161 H 164 H Calcium Vitamin D 25-Hydroxy Ur Leukocyte Esterase Urine WBC Ur Squamous Epith Cells Urine Bacteria Hyaline Casts Urine Mucus 04/25/22 04/25/22 04/26/22 19:57 20:03 07:04 WBC MCHC MPV Immature Gran # Neutrophils # Lymphocytes # Monocytes # Eosinophils # D-Dimer Sodium Carbon Dioxide Anion Gap BUN BUN/Creatinine Ratio Glucose POC Glucose (mg/dL) 148 H 116 H Calcium Vitamin D 25-Hydroxy Ur Leukocyte Esterase Large H Urine WBC 8 H Ur Squamous Epith Cells 5 H Urine Bacteria Rare H Hyaline Casts 16 H Urine Mucus Rare H 04/26/22 04/26/22 11:13 17:06 WBC MCHC MPV Immature Gran # Neutrophils # Lymphocytes # Monocytes # Eosinophils # D-Dimer Sodium Carbon Dioxide Anion Gap BUN BUN/Creatinine Ratio Glucose POC Glucose (mg/dL) 113 H 143 H Calcium Vitamin D 25-Hydroxy Ur Leukocyte Esterase Urine WBC Ur Squamous Epith Cells Urine Bacteria Hyaline Casts Urine Mucus Assessment and Plan Assessment: * Benign familial tremors * Status post accidental fall due to tripping on the cord with right hip fracture, status post hip arthroplasty * COPD Plan: * Patient and family declined any medical treatment for tremors * If tremors gets worse, then may consider Promidone/Mysoline 50 mg once a day and if needed twice a day. * May follow up in the neurology office as out patient. * Check TSH, B12, folate levels. * Neurologically clear. * Thank you for the consult. Patient's B12 is slightly low 263. We will start B12 replacement. Folic acid 15.10. TSH 0.548 normal.
--- NOTE | 2022-04-26 19:43 | P.PN ---
Progress Note - Text Progress Note Date: 04/26/22 Hospital course: This is a 66-year-old female who presents with mechanical fall resulting in righ t intratrochanteric fracture. She is postoperative day #1 operative fixation of right intertrochanteric hip fracture with short intramedullary hip screw with Dr. Dorsey. Patient also is a current smoker smokes about 7 to 10 cigarettes per day. Denies history of COPD, not using any inhalers at home. She is being followed by pulmonary this hospital stay. Patient continues on nasal cannula 4 L post operatively, denies use of home oxygen. D-Dimer has been checked at 1.08. Chest xray follow up completed showing possible right middle lobe pneumonia, also bilateral pleural effusions. Patient continues on bronchodilators will add empiric antibiotic coverage and also check BNP. Further recommendations to follow. 04/25/2022 Patient evaluated today sitting up in the chair. She overall is doing much better. She has been ambulating to the bedside commode, working with physical therapy. Patient received a dose of IV lasix this morning, proBNP was found to be 1740 yesterday. White count 16.85. Urinalysis and culture are currently pending for collection to rule out UA, patient does deny dysuria. Continues with indwelling catheter. Patient is being followed by pulmonary services as well, continues on bronchodilators, also on 5L nasal cannula. Reaching about 1000 on IS. Reinforced using IS. Plan for discharge possibly tuesday, patient may need rehab on discharge. Continue to encourage ambulation. April 26: I assumed care of the patient from [facility]. Patient sitting up in a chair. Eating some. Does not like hospital food. Able to take a few steps. Patient smoking 7 cigarettes a day prior to admission. Demonstrated how to use the incentive spirometry. Some pain at the operative site.. Family requested neurology consultation for tremors. Been consulted. Would consider using primidone. Active Medications Acetaminophen (Acetaminophen Tab 325 Mg Tab) 650 mg PO Q6HR PRN PRN Reason: Mild Pain or Fever > 100.5 Hydrocodone Bitart/Acetaminophen (Hydrocodone/Apap 5-325mg 1 Each Tab) 1 each PO Q6HR PRN PRN Reason: Pain Scale 1 to 5 Last Admin: 04/26/22 09:43 Dose: 1 each Hydrocodone Bitart/Acetaminophen (Hydrocodone/Apap 5-325mg 1 Each Tab) 2 each PO Q6HR PRN PRN Reason: Pain Scale 6 to 10 Last Admin: 04/25/22 22:48 Dose: 2 each Albuterol/Ipratropium (Ipratropium-Albuterol 3 Ml Neb) 3 ml INHALATION RT-QID [facility] Last Admin: 04/26/22 16:16 Dose: 3 ml Albuterol/Ipratropium (Ipratropium-Albuterol 3 Ml Neb) 3 ml INHALATION RT-Q2H PRN PRN Reason: Shortness Of Breath Or Wheezing Alprazolam (Alprazolam 0.25 Mg Tab) 0.25 mg PO HS PRN PRN Reason: Anxiety Last Admin: 04/26/22 05:39 Dose: 0.25 mg Aspirin (Aspirin 81 Mg) 81 mg PO BID [facility] Last Admin: 04/26/22 09:47 Dose: 81 mg Budesonide/Formoterol Fumarate (Symbicort 160-4.5 Mcg Inhaler) 2 puff INHALATION RT-BID [facility] Last Admin: 04/26/22 08:51 Dose: 2 puff Dextrose/Water (Dextrose 50% Syringe 50 Ml) 25 ml IVP PER PROTOCOL PRN; Protocol PRN Reason: Hypoglycemia Dextrose/Water (Dextrose 50% Syringe 50 Ml) 50 ml IVP PER PROTOCOL PRN; Protocol PRN Reason: Hypoglycemia Escitalopram Oxalate (Escitalopram 20 Mg Tab) 20 mg PO DAILY [facility] Last Admin: 04/26/22 09:49 Dose: 20 mg Famotidine (Famotidine 20 Mg Tab) 20 mg PO BID [facility] Last Admin: 04/26/22 09:47 Dose: 20 mg Heparin Sodium (Porcine) (Heparin Sodium,Porcine/Pf 5,000 Unit/0.5 Ml Syringe) 5,000 unit SQ Q12HR [facility] Last Admin: 04/26/22 09:42 Dose: 5,000 unit Hydromorphone HCl (Hydromorphone 0.5 Mg/0.5 Ml Syringe) 0.125 mg IVP Q3HR PRN PRN Reason: Pain Scale 1 to 3 Hydromorphone HCl (Hydromorphone 0.5 Mg/0.5 Ml Syringe) 0.25 mg IVP Q3HR PRN PRN Reason: Pain Scale 4 to 6 Last Admin: 04/23/22 20:45 Dose: 0.25 mg Hydromorphone HCl (Hydromorphone 0.5 Mg/0.5 Ml Syringe) 0.5 mg IVP Q3HR PRN PRN Reason: Pain Scale 7 to 10 Insulin Aspart (Insulin Aspart (Novolog) 100 Unit/Ml Vial) 0 unit SQ ACHS [facility]; Protocol Last Admin: 04/26/22 17:51 Dose: Not Given Metoprolol Succinate (Metoprolol Succinate (Er) 50 Mg Tab.Er.24h) 50 mg PO DAILY [facility] Last Admin: 04/26/22 09:44 Dose: 25 mg Naloxone HCl (Naloxone 0.4 Mg/Ml 1 Ml Vial) 0.2 mg IV Q2M PRN PRN Reason: Opioid Reversal Nicotine (Nicotine 7mg/24hr Patch) 1 patch TRANSDERM DAILY [facility] Last Admin: 04/26/22 09:49 Dose: 1 patch Prednisone (Prednisone 20 Mg Tab) 40 mg PO DAILY [facility] Last Admin: 04/26/22 09:42 Dose: 40 mg Senna/Docusate Sodium (Sennosides-Docusate Sodium 1 Each Tab) 2 each PO HS [facility] Last Admin: 04/25/22 21:24 Dose: 2 each On examination: VITAL SIGNS: [98.4, 98, 15, 1 29 x 71, 87% on 3 L] GENERAL APPEARANCE: Up in a chair, not in distress HEENT: Normal external appearance of nose and ear. Oral cavity normal EYES: Pupils equal. Conjunctiva normal. NECK: JVD not raised. Mass not palpable. RESPIRATORY: Respiratory effort increased. Diminished breath sounds CARDIOVASCULAR: First and second sounds normal. No edema. ABDOMEN: Soft. Liver and spleen not palpable. No tenderness. No mass palpable. PSYCHIATRY: Alert and oriented x3. Mood and affect normal. NEUROLOGICAL: Tremors INVESTIGATIONS, reviewed in the clinical context: White count 7.2 hemoglobin 12.2 potassium 4.9 creatinine 0.9 Chest x-ray: Pleural effusion. Borderline cardiomegaly. Doesn't infiltrate. Assessment and plan -Acute hypoxic respiratory failure requiring oxygen at 4-5 L nasal cannula possibly from COPD , right middle lobe pneumonia,: Slow to respond Currently on 5 L nasal cannula. Reminded to use incentive spirometry -Possible pneumonia, right lower lobe Start Omnicef -Acute COPD exacerbation in a current smoker DuoNeb 4 times a day. Symbicort 2 puffs twice a day. Oral prednisone -Acute fluid overload. Could be from IV fluids. Rule out CHF.: New diagnosis Order 2-D echocardiogram. Patient had received IV Lasix. -Leukocytosis accommodation of infection and steroids -Mechanical Fall without losing consciousness -Acute Right intertrochanteric fracture Right ID fixation with short intramedullary hip screw by Dr. Dorsey -Essential Hypertension Toprol-XL 50 mg a day -anxiety and depression Xanax and Lexapro -Chronic nicotine dependence, cigarette smoker about 7 on a preadmission Nicotine patch -Essential tremors Neurology consulted. Would consider primidone. -Full code Discussed at length with the patient. To use incentive spirometry. Educated. Counseled about smoking. Start nicotine patch. Neurology consulted because of family request for the same. Try to scale back FiO2. 2-D echocardiogram. Check pro-calcitonin
[2022-04-26] MEDS: SENNOSIDES-DOCUSATE SODIUM 1 EACH TAB PO SCH (20:13)
[2022-04-26] MEDS: CEFDINIR 300 MG CAP PO SCH (20:13)
[2022-04-26 20:28] LABS: Glucose,Whole Blood 247 mg/dL (70-110)
[2022-04-27 07:17] LABS: Glucose,Whole Blood 101 mg/dL (70-110)
[2022-04-27] MEDS: INSULIN ASPART (NovoLOG) 100 UNIT/ML VIAL SQ SCH ×2 (07:39→11:29)
[2022-04-27] MEDS: IPRATROPIUM-ALBUTEROL 3 ML NEB INHALATION SCH ×3 (07:40→15:10)
[2022-04-27] MEDS: SYMBICORT 160-4.5 MCG INHALER INHALATION SCH (07:40)
[2022-04-27 08:28] LABS: African American GFR (CKD) >90 (>60 ml/min/1.73 sqM); Anion Gap 3 mmol/L; Blood Urea Nitrogen 23 mg/dL (7-17); Calcium 8.2 mg/dL (8.4-10.2); Carbon Dioxide 38 mmol/L (22-30); Chloride 99 mmol/L (98-107); Glucose 102 mg/dL (74-99); Non-African American GFR(CKD) >90 (>60 ml/min/1.73 sqM); Potassium 3.7 mmol/L (3.5-5.1); Sodium 140 mmol/L (137-145)
[2022-04-27] MEDS: HEPARIN SODIUM,PORCINE/PF 5,000 UNIT/0.5 ML SYRINGE SQ SCH (08:49)
[2022-04-27] MEDS: FAMOTIDINE 20 MG TAB PO SCH (08:50)
[2022-04-27] MEDS: CEFDINIR 300 MG CAP PO SCH (08:50)
[2022-04-27] MEDS: METOPROLOL SUCCINATE (ER) 50 MG TAB.ER.24H PO SCH (08:50)
[2022-04-27] MEDS: ASPIRIN 81 MG PO SCH (08:50)
[2022-04-27] MEDS: predniSONE 20 MG TAB PO SCH (08:50)
[2022-04-27] MEDS: NICOTINE 7MG/24HR PATCH TRANSDERM SCH (08:52)
[2022-04-27] MEDS: ESCITALOPRAM 20 MG TAB PO SCH (08:52)
[2022-04-27 11:18] LABS: Glucose,Whole Blood 104 mg/dL (70-110)
--- NOTE | 2022-04-27 12:09 | CA ---
Transthoracic Echo Report Name: Mone Connor Age: 66 Gender: F : 1955 Exam Date: 04/26/2022 10:20 Exam Location: [place] [facility] Ht (in): 65 Wt (lb): 120 Ordering Physician: Abe Marcos MD Attending/Referring Phys: [employer] Ema Bird RDCS Procedure CPT: Indications: chf Cardiac Hx: Technical Quality: Fair Contrast 1: Total Dose (mL): Contrast 2: Total Dose (mL): MEASUREMENTS (Male / Female) Normal Values 2D ECHO LV Diastolic Diameter PLAX 4.7 cm 4.2 - 5.9 / 3.9 - 5.3 cm LV Systolic Diameter PLAX 3.3 cm IVS Diastolic Thickness 1.0 cm 0.6 - 1.0 / 0.6 - 0.9 cm LVPW Diastolic Thickness 1.1 cm 0.6 - 1.0 / 0.6 - 0.9 cm LV Relative Wall Thickness 0.5 RV Internal Dim ED PLAX 2.6 cm LA Volume 25.5 cm??? 18 - 58 / 22 - 52 cm??? M-MODE Aortic Root Diameter MM 3.5 cm LA Systolic Diameter MM 3.1 cm LA Ao Ratio MM 0.9 AV Cusp Separation MM 1.8 cm DOPPLER AV Peak Velocity 135.8 cm/s AV Peak Gradient 7.4 mmHg LVOT Peak Velocity 106.6 cm/s LVOT Peak Gradient 4.5 mmHg MV Area PHT 4.0 cm??? Mitral E Point Velocity 80.4 cm/s Mitral A Point Velocity 108.1 cm/s Mitral E to A Ratio 0.7 MV Deceleration Time 191.1 ms MV E' Velocity 6.9 cm/s Mitral E to MV E' Ratio 11.7 FINDINGS Left Ventricle Mildly increased left ventricular wall thickness. Normal left ventricular systolic function with no obvious regional wall motion abnormalities. Left ventricular ejection fraction is estimated at 55-60 %. Right Ventricle Normal right ventricular size and function. Right Atrium Normal right atrial size. Left Atrium Normal left atrial size. No evidence for an atrial septal defect. Mitral Valve Structurally normal mitral valve. No mitral stenosis, regurgitation or prolapse. Aortic Valve No aortic valve stenosis or regurgitation. Tricuspid Valve Structurally normal tricuspid valve. Mild tricuspid regurgitation. Pulmonic Valve Trace pulmonic regurgitation. Pericardium No pericardial effusion. Echo free space anterior to the right ventricle likely represents a fat pad. Aorta Normal size aortic root and proximal ascending aorta. CONCLUSIONS Mild LVH Normal left ventricular EF 55-60% Mild tricuspid regurgitation No pericardial effusion Previewed by: Dr. Alec Richardson DO (Electronically Signed) Final Date: 27 April 2022 12:08
--- NOTE | 2022-04-27 12:21 | P.PN ---
Subjective Progress Note Date: 04/27/22 This is a very pleasant 66-year-old female that were asked to see for preoperative clearance. The patient apparently tripped on some power cords, and fractured her right hip. The patient is currently on 5 L of oxygen. Her saturations are 92%. She's not short of breath. She has no known history of any lung disease. She is also receiving saline at 75 mL an hour. She does have a history of hypertension, anxiety/depression, and diverticular disease, with a previous bowel resection. She did smoke for about 20 years, at one half pack a day. We did recommend incentive spirometry, and updrafts. Clinically, she looks well. In my opinion, orthopedics could proceed with surgery. White count 16.5, hemoglobin 14.3, hematocrit 5.4, and platelet count 225,000. PT/INR/PTT are all normal. Sodium 136, with a normal potassium, chloride, CO2, anion gap, BUN, and creatinine. The rest of the comprehensive metabolic profile is normal. Chest x-ray shows no acute disease. The patient is seen today 04/24/2022 in follow-up on the regular medical floor. She is maintaining O2 saturations in the low 90s on 5 L/m per nasal cannula. She's been afebrile. Hemodynamically stable. She did undergo a fixation of the right internal trochanteric hip fracture with short intramedullary hip screw placement yesterday 04/23/2022. Her pain is been fairly well controlled. The plan is to have her up out of bed today. She is encouraged regarding the use of the incentive spirometer and cough and deep breathing. Blood glucose 144. She is continued on Symbicort, DuoNeb inhalations, IV Solu-Medrol. Heparin for DVT prophylaxis. The patient is seen today 04/25/2022 in follow-up on the regular medical floor. She is resting comfortably in bed. Awake and alert in no acute distress. Postoperative day #2. Right hip dressing dry and intact. She is maintaining O2 saturations in the upper 90s on 5 L/m per nasal cannula. Chest x-ray reveals cardiomegaly with bilateral pleural effusions and possible right middle lobe pneumonia versus technique. White count 16.8. Humulin 12.2. Platelets 143. Sodium 1:30. Potassium 4.9. BUN 30. Creatinine 0.9. Glucose 154. ProBNP 1740. She remains on Symbicort, DuoNeb inhalations, IV Solu-Medrol. Heparin for DVT prophylaxis. The patient is seen today 04/26/2020 of the regular medical floor. She is currently resting comfortably. Awake and alert in no acute distress. Her daughter is at the bedside. Her pain has been well controlled. She's been up with assistance with a walker. Blood glucose 113. She is less short of breath today. Feeling also to her baseline. She is maintaining O2 saturations in the high 90s on 5 L nasal cannula. She's been afebrile. Hemodynamically stable. We did trial her on 3 L nasal cannula and her O2 saturation was 87%. She is continued on Symbicort, DuoNeb inhalations, prednisone taper. NicoDerm patch place. Heparin for DVT prophylaxis. The patient is seen today 04/27/2022 in follow-up on the regular medical floor. She is currently sitting up in a chair at the bedside. Awake and alert in no acute distress. She is maintaining O2 saturations in the 90s on 4 L/m per nasal cannula. Echocardiogram reveals preserved left ventricular systolic function with ejection fraction 55-60%. No significant valvular heart disease. Sodium 140. Potassium 3.7. Bicarb 30. BUN 23. Creatinine 0.65. Glucose 102. Pro calcitonin 0.06. She remains on DuoNeb inhalations, Symbicort, prednisone taper. NicoDerm patch is in place. Heparin for DVT prophylaxis. Objective - Vital Signs Vital signs: Vital Signs Temp 98.2 F 04/27/22 05:00 Pulse 96 04/27/22 12:02 Resp 20 04/27/22 05:00 BP 160/93 04/27/22 05:00 Pulse Ox 92 L 04/27/22 05:00 FiO2 Intake & Output 04/26/22 04/27/22 04/27/22 18:59 06:59 18:59 Intake Total 600 300 Output Total 3 0 Balance 597 300 Intake: Oral 600 300 Output: Urine 1 Stool 2 0 Other: Voiding Method Indwelling Catheter Indwelling Catheter # Voids 2 # Bowel Movements 1 - Exam GENERAL EXAM: Alert, pleasant 66-year-old female, up in a chair at the bedside, on 4 L nasal cannula. HEAD: Normocephalic. EYES: Normal reaction of pupils, equal size. NOSE: Clear with pink turbinates. THROAT: No erythema or exudates. NECK: No masses, no JVD. CHEST: No chest wall deformity. LUNGS: Equal air entry with bilateral end expiratory wheeze, diminished CVS: S1 and S2 normal with no audible murmur, regular rhythm. ABDOMEN: No hepatosplenomegaly, normal bowel sounds, no guarding or rigidity. SPINE: No scoliosis or deformity SKIN: No rashes CENTRAL NERVOUS SYSTEM: No focal deficits, tone is normal in all 4 extremities. EXTREMITIES: Seem to the right hip clean and dry. There is no peripheral edema. No clubbing, no cyanosis. Peripheral pulses are intact. - Labs CBC & Chem 7: 04/25/22 19:07 04/27/22 06:14 Labs: Abnormal Lab Results - Last 24 Hours (Table) 04/26/22 04/26/22 04/27/22 Range/Units 17:06 20:26 06:14 Carbon Dioxide 38 H (22-30) mmol/L BUN 23 H (7-17) mg/dL Glucose 102 H (74-99) mg/dL POC Glucose (mg/dL) 143 H 247 H (70-110) mg/dL Calcium 8.2 L (8.4-10.2) mg/dL Assessment and Plan Assessment: Status post fall, with right hip fracture. Status post operative fixation of the right intertrochanteric hip fracture with short intramedullary hip screw basement on 04/23/2022. Postoperative day #4. Low saturations, which may relate to some intrinsic pulmonary disease, such as COPD, from previous tobacco use. Evidence of mild fluid volume overload postoperatively. Echocardiogram revealed preserved left ventricular systolic function Chronic and ongoing tobacco dependence, NicoDerm patch in place History of hypertension. Diverticular disease, status post bowel resection. History of anxiety/depression. Plan: The patient was seen and evaluated Continue incentive spirometer every hour while awake Titrate the FiO2 as tolerated Continue bronchodilators Increase her activity as tolerated With benefit from a PFT in the outpatient setting for suspected COPD Will possibly need home oxygen Cleared for discharge once cleared by orthopedics/medicine I have personally seen and examined the patient, performed the documentation and the assessment and plan as written. Number of minutes spent on the visit: 10. I have personally seen and examined the patient and reviewed the documentation. I performed a joint evaluation with the nurse practitioner in this evaluation was done more than 20 minutes. I fully agree with the documentation above and the plan of care.
[2022-04-27 12:28] VITALS: BP 137/78; RESP 17; TEMP 98.1
[2022-04-27] MEDS ORDERED: CYANOCOBALAMIN 1,000 MCG/ML 1 ML VIAL IM ONE (12:30)
--- NOTE | 2022-04-27 14:12 | P.DS ---
Providers Date of admission: 04/22/22 18:42 Expected date of discharge: 04/27/22 Attending physician: Joey Dorsey Consults: 04/22/22 18:41 Consult Physician Urgent Consulting Provider: Alan Varela Consult Reason/Comments: medical clearance Do you want consulting provider notified?: Yes 04/23/22 08:36 Consult Physician Routine Consulting Provider: Abad Antonio Consult Reason/Comments: Hypoxia ,pre op clearence Do you want consulting provider notified?: Yes 04/26/22 11:48 Consult Physician Urgent Consulting Provider: Sugar Bolden Consult Reason/Comments: tremors, weakness Do you want consulting provider notified?: Yes 04/26/22 14:39 Consult Physician Urgent Consulting Provider: Solo Velasquez Consult Reason/Comments: paranoid tendencies Do you want consulting provider notified?: Yes Primary care physician: Dale Alvarez [facility] Course: This is a 66-year-old female who sustained a ground level fall resulting in a right intertrochanteric hip fracture. Patient was admitted under the care of Dr. Dorsey with a consult placed to internal medicine for pre-operative medical clearance. Patient underwent operative fixation of right intertr ochanteric hip fracture with a short intramedullary hip screw on 04/23/22. The procedure was performed without complication or sequelae. The patient is doing fairly well postoperatively. Vital signs and labs are stable on postoperative day #4. Patient was examined bedside today. Patient states she is doing well and has no specific complaints. She has been ambulating with a walker with minimal assistance. She states the pain in her right hip is well controlled at this time. She has been cleared by internal medicine, pulmonary, neurology for clearance to discharge to rehab today. She denies chest pain or shortness of breath. Vital signs stable. On examination, the patient is sitting up in bed. She is alert and oriented 3. On inspection of the right hip, there is a clean, dry, intact Opsite dressings intact. No drainage. Mild swelling of the thigh, the thigh is soft and compressible. Motor and sensory function intact RLE. Dorsalis pedis pulse easily palpable. Calf non-tender. Patient is discharged to rehab today in good condition, pending medical clearance. Patient will follow-up with Dr. Dorsey in the office in 2 weeks. Please see med rec for accurate list of discharge medication. Patient Condition at Discharge: Stable Plan - Discharge Summary Discharge Rx Participant: No New Discharge Prescriptions: New HYDROcodone/APAP 5-325MG [[place] 5-325] 1 - 2 tab PO Q6HR PRN 7 Days #32 tab PRN Reason: Pain Aspirin 81 mg PO BID 30 Days #60 tab Nicotine 7Mg/24Hr Patch [Habitrol] 1 patch TRANSDERM DAILY patch Cefdinir [Omnicef] 300 mg PO BID #6 cap Sennosides-Docusate Sodium [Senokot-S] 2 each PO HS tab Primidone [Mysoline] 25 mg PO TID #90 dose Ipratropium-Albuterol Nebulize [Duoneb 0.5 mg-3 mg/3 ml Soln] 3 ml INHALATION RT-QID each Famotidine [Pepcid] 20 mg PO BID tab predniSONE 10 mg PO DAILY #30 tab Budesonide-Formot 160-4.5 Mcg [Symbicort 160-4.5 Mcg Inhaler] 2 puff INHALATION RT-BID each Acetaminophen Tab [Tylenol] 650 mg PO Q6HR PRN tab PRN Reason: Mild Pain Or Fever > 100.5 Continue Metoprolol Succinate [Toprol XL] 50 mg PO DAILY Escitalopram Oxalate [Lexapro] 20 mg PO DAILY ALPRAZolam [Xanax] 0.25 mg PO HS PRN #3 tab PRN Reason: Anxiety Discharge Medication List Escitalopram Oxalate [Lexapro] 20 mg PO DAILY 04/22/22 [History] Metoprolol Succinate [Toprol XL] 50 mg PO DAILY 04/22/22 [History] Aspirin 81 mg PO BID 30 Days #60 tab 04/26/22 [Rx] HYDROcodone/APAP 5-325MG [[place] 5-325] 1 - 2 tab PO Q6HR PRN 7 Days #32 tab 04/26/22 [Rx] ALPRAZolam [Xanax] 0.25 mg PO HS PRN #3 tab 04/27/22 [Rx] Acetaminophen Tab [Tylenol] 650 mg PO Q6HR PRN tab 04/27/22 [Rx] Budesonide-Formot 160-4.5 Mcg [Symbicort 160-4.5 Mcg Inhaler] 2 puff INHALATION RT-BID each 04/27/22 [Rx] Cefdinir [Omnicef] 300 mg PO BID #6 cap 04/27/22 [Rx] Famotidine [Pepcid] 20 mg PO BID tab 04/27/22 [Rx] Ipratropium-Albuterol Nebulize [Duoneb 0.5 mg-3 mg/3 ml Soln] 3 ml INHALATION RT-QID each 04/27/22 [Rx] Nicotine 7Mg/24Hr Patch [Habitrol] 1 patch TRANSDERM DAILY patch 04/27/22 [Rx] Primidone [Mysoline] 25 mg PO TID #90 dose 04/27/22 [Rx] Sennosides-Docusate Sodium [Senokot-S] 2 each PO HS tab 04/27/22 [Rx] predniSONE 10 mg PO DAILY #30 tab 04/27/22 [Rx] Follow up Appointment(s)/Referral(s): Abad Antonio DO [Doctor of Osteopathic Medicine] - 1 Week Dale Alvarez MD [Primary Care Provider] - 1-2 days Joey Dorsey MD [Medical Doctor] - 2 Weeks Activity/Diet/Wound Care/Special Instructions: Weight bear to tolerance on operative extremity Discharge Disposition: TRANSFER TO SNF/ECF
--- NOTE | 2022-04-27 14:15 | P.CN ---
Psychiatric Consult - . Consult date: 04/27/22 Consult:: 04/27/22 12:15 IDENTIFYING DATA: This patient is a 66-year-old female currently lives with her daughter and son-in-law and grandkids. They live in a house. She is . REASON FOR REFERRAL: Psychiatry was consulted for paranoia HISTORY OF PRESENT ILLNESS: The patient presented to the hospital initially on 04/22 for right hip pain. The patient had tripped at home and then on her right side and sustain a fracture. She required surgery with orthopedics. Patient's nurse offered no complaints in place that patient has been calm and cooperative. Patient was seen sitting in the chair beside her bed watching TV and agreeable to verse writer. She spoke about her hospitalization about her falling and breaking her hip. She states that the recovery has been fairly slow and she continues to be in pain at times. She states that she has no complaints with the hospital staff and there doing well. She states that she is having some anxiety "on and off" related to her pain and also being in the hospital. She states that he is not having any panic attacks at this time and is taking Xanax as needed. She states that her psychiatrist has been prescribing this for her for the past several months. She states that she follows up with him every 2 months and also has a therapist that she sees weekly. She claims that she has mild depression however fairly optimistic. He claims that her sleep and appetite have been good. At this time patient denies any suicidal or homical ideations, intent or plan. Patient denies any auditory, visual hallucinations and denies any paranoia or delusions. Patients admits to using . No recreational drugs except for cigarettes daily. PAST PSYCHIATRIC HISTORY: Patient has a a history of anxiety and depression. Issues currently on Lexapro and Xanax when necessary. Patient denies any previous psychiatric hospitalizations. She states that she does have a psychiatrist Dr. Mcpherson through [facility] and also has a therapist that she sees weekly. Patient denies any history of suicide attempts in the past. Past Medical History: No Reported History Additional Past Medical History / Comment(s): diverticulosis, ALLERGIES: as per EMR. CHEMICAL DEPENDENCY HISTORY: as per HPI. FAMILY PSYCHIATRIC/SUBSTANCE USE HISTORY: He claims that her sister has some form of mental illness. SOCIAL HISTORY: Patient was born and raised in [place] and also in part [facility]. She claims that she completed high school. 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 She denies any legal history. She claims that she currently lives with her daughter and son-in-law in the house. She is . MENTAL STATUS EXAM: General Appearance: Patient appears to be thin, short hair, stated age is alert, pleasant, and cooperative. Patient appears to have fair hygiene and grooming wearing hospital gown with good eye contact. Behavior: Patient is calmly lying in bed without any agitated behavior. Mildly anxious. Speech: Patient's speech is fluent and nonpressured. Mood/Affect: Patient reports their mood is "ok", affect is congruent Suicidality/Homicidality: Patient denies having any suicidal or homicidal ideation intent or plan. Perceptions: Patient denies any visual hallucinations and denies any auditory hallucinations Though content/process: There is no evidence of any delusional thought content and thought process is linear and goal-directed. Memory and concentration: AOX3, grossly intact for the purposes of this session. Can spell "WORLD" backwards Judgment and insight: Good IMPRESSIONS: Anxiety disorder unspecified, likely generalized anxiety disorder History of depressive disorder Nicotine dependence PLAN: -At this time patient DOES NOT meet criteria for inpatient psychiatric admission. -Would recommend the following medication changes/additions: Can continue on Xanax when necessary and also Lexapro as prescribed. We spoke about other options for controlling anxiety and patient claims that she would like to speak with her psychiatrist about it as an outpatient. Continue on with weekly therapy -Communicated plan to patient's nurse -Psychiatry will sign off at this time -Please contact with any questions.
[2022-04-27 15:23] VITALS: PULSE 95
--- NOTE | 2022-04-27 18:30 | P.PN ---
Progress Note - Text Progress Note Date: 04/27/22 Hospital course: This is a 66-year-old female who presents with mechanical fall resulting in rig ht intratrochanteric fracture. She is postoperative day #1 operative fixation of right intertrochanteric hip fracture with short intramedullary hip screw with Dr. Dorsey. Patient also is a current smoker smokes about 7 to 10 cigarettes per day. Denies history of COPD, not using any inhalers at home. She is being followed by pulmonary this hospital stay. Patient continues on nasal cannula 4 L post operatively, denies use of home oxygen. D-Dimer has been checked at 1.08. Chest xray follow up completed showing possible right middle lobe pneumonia, also bilateral pleural effusions. Patient continues on bronchodilators will add empiric antibiotic coverage and also check BNP. Further recommendations to follow. 04/25/2022 Patient evaluated today sitting up in the chair. She overall is doing much better. She has been ambulating to the bedside commode, working with physical therapy. Patient received a dose of IV lasix this morning, proBNP was found to be 1740 yesterday. White count 16.85. Urinalysis and culture are currently pending for collection to rule out UA, patient does deny dysuria. Continues with indwelling catheter. Patient is being followed by pulmonary services as well, continues on bronchodilators, also on 5L nasal cannula. Reaching about 1000 on IS. Reinforced using IS. Plan for discharge possibly tuesday, patient may need rehab on discharge. Continue to encourage ambulation. April 26: I assumed care of the patient from [facility]. Patient sitting up in a chair. Eating some. Does not like hospital food. Able to take a few steps. Patient smoking 7 cigarettes a day prior to admission. Demonstrated how to use the incentive spirometry. Some pain at the operative site.. Family requested neurology consultation for tremors. Been consulted. Would consider using primidone. April 27: Patient is agreed to use primidone after discussed that with her. We'll start on 25 mg 3 times a day. Since she how this goes. Spoke cessation reinforced. Incentive spirometry. Patient going to rehab. Medications reconciled. On examination: VITAL SIGNS: 98.1, 97, 17, 137.78, 94% on 4 L GENERAL APPEARANCE: Up in a chair, comfortable HEENT: Normal external appearance of nose and ear. Oral cavity normal EYES: Pupils equal. Conjunctiva normal. NECK: JVD not raised. Mass not palpable. RESPIRATORY: Respiratory effort increased. Diminished breath sounds CARDIOVASCULAR: First and second sounds normal. No edema. ABDOMEN: Soft. Liver and spleen not palpable. No tenderness. No mass palpable. PSYCHIATRY: Alert and oriented x3. Mood and affect normal. NEUROLOGICAL: Tremors INVESTIGATIONS, reviewed in the clinical context: 2-D echo: EF 55-60%. April 27: Potassium 3.7 creatinine 0.65 pro-calcitonin 0.06 TSH 0.548 B12 263 folate 15 White count 7.2 hemoglobin 12.2 potassium 4.9 creatinine 0.9 Chest x-ray: Pleural effusion. Borderline cardiomegaly. Doesn't infiltrate. Assessment and plan -Acute hypoxic respiratory failure requiring oxygen at 4-5 L nasal cannula possibly from COPD , right middle lobe pneumonia,: Better Currently on 4 L nasal cannula. Reminded to use incentive spirometry -Possible pneumonia, right lower lobe Omnicef 300 mg twice a day for 3 days -Acute COPD exacerbation in a current smoker: Better DuoNeb 4 times a day. Symbicort 2 puffs twice a day. Oral prednisone -Acute fluid overload. from IV fluids. No CHF had received IV Lasix. -Leukocytosis accommodation of infection and steroids -Mechanical Fall without losing consciousness -Acute Right intertrochanteric fracture Right ID fixation with short intramedullary hip screw by Dr. Dorsey -Essential Hypertension Toprol-XL 50 mg a day -anxiety and depression Xanax and Lexapro -Chronic nicotine dependence, cigarette smoker about 7 on a preadmission Nicotine patch -Essential tremors Neurology consulted. Primidone 25 mg 3 times a day -Full code Discussed length with the patient. She will try primidone. Other medications to continue. Steroid taper. Incentive spirometry. Nicotine patch. Complete 3 days of Omnicef. I spent about 40 minutes with over 25 minutes of discussion.
[2022-04-28] MEDS ORDERED: CYANOCOBALAMIN 500 MCG TAB PO SCH (09:00)
== END 2022-04-27 16:20 | DRG 480 ==
LOC: EC 17:31 → 4SSUR 18:42 → 5NMEDONC 04-23 01:16
PROVIDERS: ADMIT Orthopaedic Surgery; ATTEND Orthopaedic Surgery
PROC: 0QS606Z Reposition Right Upper Femur with Intramedullary Internal Fixation Device, Open Approach (ICD-10-PCS; principal; 2022-04-22)
DX: S72.141A Displaced intertrochanteric fracture of right femur, initial encounter for closed fracture (principal); J18.9 Pneumonia, unspecified organism; J96.01 Acute respiratory failure with hypoxia; J44.0 Chronic obstructive pulmonary disease with (acute) lower respiratory infection; J44.1 Chronic obstructive pulmonary disease with (acute) exacerbation; J90 Pleural effusion, not elsewhere classified; F17.210 Nicotine dependence, cigarettes, uncomplicated; F32.A Depression, unspecified; F41.1 Generalized anxiety disorder; I11.9 Hypertensive heart disease without heart failure; G25.0 Essential tremor; E87.70 Fluid overload, unspecified; W01.0XXA Fall on same level from slipping, tripping and stumbling without subsequent striking against object, initial encounter; Z79.899 Other long term (current) drug therapy; Z88.0 Allergy status to penicillin; Z91.040 Latex allergy status; Z79.51 Long term (current) use of inhaled steroids; Z79.82 Long term (current) use of aspirin; Z90.49 Acquired absence of other specified parts of digestive tract
CPT/HCPCS: 51702; 71045; 71046; 73502; 80048; 80053; 81001; 82306; 82607; 82746; 83036; 83880; 84145; 84443; 85025; 85379; 85610; 85730; 93306; 94640; 94760; 96361; 96374; 96376; 99285